=== PATIENT | female | born 1995 | race Caucasian/White ===

== ENCOUNTER 2024-01-06 09:54 | Outpatient (CLI) | payer BC, MEDICAID, SELFPAY | END 2024-01-06 09:55 | disposition home or self-care (01) | LOC: NFLDREF 01-08 10:23 | PROVIDERS: PCP Nurse Practitioner Family; Referring Provider Nurse Practitioner Family; Visit Provider Advanced Practice Midwife | DX: O20.9 Hemorrhage in early pregnancy, unspecified (principal) | CPT/HCPCS: 84702; 86850; 86900; 86901 ==

== ENCOUNTER 2024-01-08 09:53 | Outpatient (CLI) | payer BC, MEDICAID, SELFPAY ==
--- NOTE | 2024-01-08 10:15 | US_ITS ---
Patient: NANCY ALANIZ Facility:?[facility] RIS Patient ID:?[id number] Site Patient ID:?[id number]. Site :?[id number] Study:?US-OB Pelvis TRANSVAGINAL-01/08/2024 10:51:53 AM Ordering Physician:?HILLARY BAUER Final Report: INDICATION: Vaginal bleeding in the setting of . According to the dental technologist`s worksheet, serum beta HCG levels are 659 on 01/06/2024 and 594 on 01/07/2024. COMPARISON: None available. TECHNIQUE: Pelvic grayscale and spectral Doppler ultrasound via a transvaginal approach. FINDINGS: LMP: 11/16/2023 Uterus: Measures 6.5 x 5.5 x 9.8cm. Solid mixed echotexture of focus in the right posterior uterine body abutting and displacing the endometrial stripe consistent with a myometrial fibroid with a subendometrial component measuring 1.1 cm in greatest dimension. There is a similar finding elsewhere in the right uterine body measuring 1.3 cm also consistent with a fibroid. This may abut the lower uterine segment on the transverse static image taken of this finding. Unremarkable cervix. Please note that US is insensitive for detection of epithelial lesions of the cervix, compared to physical examination. Endometrial stripe: Measures 17mm. Uniform in thickness. Right Ovary: Not identifiable. No right adnexal lesion is demonstrated. Left Ovary: Measures 2.1 x 1.8 x 3.9cm and 8mL. 2.0 cm corpus luteum cyst. Spectral Doppler demonstrates normalarterial and venousblood flow. Pelvic fluid: No significant pelvic ascites. Small volume free fluid within physiologic limits of normal. IMPRESSION: of unknown location. No intrauterine or adnexal findings to indicate an ectopic . Follow-up serum beta HCG with or without pelvic ultrasound, as clinically appropriate, is recommended. Consider OB consultation. Incidental findings described above. Dictated by Kenroy Edwards MD @ 01/08/2024 10:58:49 AM Signed by:?Kenroy Edwards MD @01/08/2024 10:58:49 AM (Electronic Signature)
== END 2024-01-08 09:54 | disposition home or self-care (01) ==
LOC: US 09:54
PROVIDERS: PCP Nurse Practitioner Family; Visit Provider Obstetrics & Gynecology
DX: O20.9 Hemorrhage in early pregnancy, unspecified (principal)
CPT/HCPCS: 76817; 84702

== ENCOUNTER 2024-01-14 13:46 | Outpatient (CLI) | payer BC, MEDICAID, SELFPAY | END 2024-01-14 13:47 | disposition home or self-care (01) | LOC: NFLDREF 01-15 07:37 | PROVIDERS: PCP Nurse Practitioner Family; Referring Provider Nurse Practitioner Family; Visit Provider Obstetrics & Gynecology | DX: O03.9 Complete or unspecified spontaneous abortion without complication (principal) | CPT/HCPCS: 84702 ==

== ENCOUNTER 2024-01-19 14:17 | Outpatient (CLI) | payer BC, MEDICAID, SELFPAY ==
--- OUTSIDE RECORDS SUMMARY | 2024-01-20 07:10 | XMS_ITS | Clinical Summary ---
Author Name Unknown Organization [facility] Address [address] [place] [address] Care Team Providers Care Filter Tank Tender Name Role Phone Elsewhere, Pcp Primary Care Provider Unavailabl e Source Comments Patient records contain information from all sites at [facility]. For routine questions regarding patient records, call [phone] during business hours, M-F 8:00 AM - 5:00 PM Central Time. Record requests for emergency care only can be directed to [phone] at any time.[facility] Allergies No known active allergies Medications Medication Sig Dispensed Refills Start Date End Date Status buPROPion XL (WELLBUTRIN XL) 150 mg 24 hr tablet Not taking 0 10/24/2022 Active vilazodone (VIIBRYD) 40 mg tablet 0 10/24/2022 Active naltrexone (DEPADE) 50 mg tablet 0 10/24/2022 Active traZODone (DESYREL) 50 mg tablet Take 50-100 mg by mouth at bedtime as needed. 0 07/31/2022 Active LORazepam (ATIVAN) 0.5 mg tablet 0 Active ibuprofen (ADVIL,MOTRIN) 600 mg tablet Not taking 0 01/12/2022 Active Slynd 4 mg (28) tablet Take 1 tablet by mouth daily. Not currently taking 0 09/22/2022 Active propranoloL (INDERAL) 10 mg tablet Take 10 mg by mouth every 8 (eight) hours as needed. 0 Active penicillin V potassium (VEETIDS) 500 mg tabletIndications:Ph aryngitis Streptococcal Take 1 tablet (500 mg total) by mouth 3 (three) times a day for 10 days. 30 tablet 0 12/11/2023 12/21/2023 cephalexin (KEFLEX) 500 mg capsule Take 500 mg by mouth. 0 12/31/2023 01/10/2024 Active Problems Problem Noted Date Diagnosed Date Bicornuate Uterus 02/28/2019 Comments Yes Encounters Date Type Department Care Team Description 01/07/2024 6:35 PM CDT - 01/07/2024 9:30 PM CDT Emergency [facility] [address] [place] [address] Morris Villalba M.D. Bleeding Vaginal Less Than 22 Week (HCC) (Primary Dx); Threatened (HCC); Abdominal Pain; Bicornuate Uterus Discharge Disposition: Home or Self Care 12/11/2023 12:00 PM IMPLEMENTATION CONSULTANT Office Visit Urgent Care, [facility], in [place], [place] [address] [place] [address] Jose Howell P.A.-C. Pharyngitis Streptococcal (Primary Dx); Pharyngitis Acute Discharge Disposition: Home or Self Care from Last 3 Months Social History Tobacco Use Types Packs/Day Years Used Date Smoking Tobacco: Never Smokeless Tobacco: Never Tobacco Cessation:Counseling Given: Not Answered Nutrition Answer Date Recorded Nutrition: EVOO Fat Source Unknown 12/14 Nutrition: Servings of Fruits/Vegetables per Day Not on file 12/14/2020 Dental Answer Date Recorded Dental: Regular Dentist Unknown 12/15/19 21 Comments Yes Sex and Gender Information Value Date Recorded Sex Assigned at Not on file Gender Identity Not on file Sexual Orientation Not on file Last Filed Vital Signs Vital Sign Reading Time Taken Comments Blood Pressure 138/84 01/07/2024 9:30 PM CDT Pulse 98 01/07/2024 9:30 PM CDT Temperature 37.4 ??C (99.3 ??F) 01/07/2024 3:54 PM CD T Respiratory Rate 16 01/07/2024 5:47 PM CDT Oxygen Saturation 98% 01/07/2024 9:30 PM CDT Inhaled Oxygen Concentration - - Weight 118 kg (260 lb) 01/07/2024 3:54 PM CDT Height 165.1 cm (5' 5) 01/07/2024 3:54 PM CDT Body Mass Index 43.27 01/07/2024 3:54 PM CDT Plan of Treatment Health Maintenance Due Date Last Done Comments HIV Screening 1995 Hepatitis C Screening 1995 Hepatitis B Vaccines (1 of 3 - 19+ 3-dose series) 2014 COVID-19 Vaccine (1 - 2022-2 4 season) 2023 Influenza Vaccine (#1) 2023 , 08/16/2018 Depression Screening (Annual PHQ-2) 10/12/2023 Cervical Cancer Screening 06/28/2024 06/28/2021 DTaP,Tdap,and Td Vaccines (3 - Td or Tdap) 11/04/2031 11/04/2021, 01/27/2019 RSV vaccine - (32-3 6 weeks) or 60+ years (1 - 1-dose 60+ series) 2055 HPV Vaccines Aged Out No longer eligi ble based on patient's age to complete this topic Pneumococcal vaccine (0-64 years) Aged Out No longer eligible b ased on patient's age to complete this topic Procedures Procedure Name Priority Date/Time Associated Diagnosis Comments TESTING LOCATION Routine 01/07/2024 5:54 PM CDT COMPREHENSIVE METABOLIC PANEL, S/P STAT 01/07/2024 5:54 PM CDT CBC WITH DIFFERENTIAL, B STAT 01/07/2024 5:54 PM CDT HUMAN CHORIONIC GONADOTROPIN (HCG), LUISA, STAT 01/07/2024 5:54 PM CDT TYPE AND SCREEN Routine 01/07/2024 5:54 PM CDT GROUP A STREP PCR, THROAT STAT 12/11/2023 12:44 PM IMPLEMENTATION CONSULTANT Pharyngitis Acute from Last 3 Months Results * Testing Location (01/07/2024 5:54 PM CDT) Testing Location [facility] DEFAULT 01/07/2024 6:01 PM CDT [facility] Blood 01/07/2024 5:54 PM CDT 01/07/2024 6:01 PM CDT Travis Littlejohn D.O. LAB BLOOD BANK TEST ORDERABLES [facility] [address] [place] [address], [facility] [address] [place] [address] * (ABNORMAL) CBC with Differential, Blood (01/07/2024 5:54 PM CDT) Hemoglobin 12.7 11.6 - 15.0 g/dL 01/07/2024 6:05 PM CDT [facility] Hematocrit 39.6 35.5 - 44.9 % 01/07/2024 6:05 PM CDT [facility] Erythrocytes 4.79 3.92 - 5.13 x10(12)/L 01/07/2024 6:05 PM CDT [facility] MCV 82.7 78.2 - 97.9 fL 01/07/2024 6:05 PM CDT [facility] RBC Distrib Width 13.5 12.2 - 16.1 % 01/07/2024 6:05 PM CDT [facility] Platelet Count 332 157 - 371 x10(9)/L 01/07/2024 6:05 PM CDT [facility] Leukocytes 9.9(H) 3.4 - 9.6 x10(9)/L 01/07/2024 6:05 PM CDT [facility] Neutrophils 6.41 1.56 - 6.45 x10(9)/L 01/07/2024 6:05 PM CDT [facility] Lymphocytes 2.77 0.95 - 3.07 x10(9)/L 01/07/2024 6:05 PM CDT [facility] Monocytes 0.56 0.26 - 0.81 x10(9)/L 01/07/2024 6:05 PM CDT [facility] Eosinophils 0.17 0.03 - 0.48 x10(9)/L 01/07/2024 6:05 PM CDT [facility] Basophils <0.04 0.01 - 0.08 x10(9)/L 01/07/2024 6:05 PM CDT [facility] Blood (Blood, Venous) 01/07/2024 5:54 PM CDT 01/07/2024 6:01 PM CDT Travis Littlejohn D.O. LAB BLOOD ADD-ON Performing Organization Address [facility] Co de Phone Number [facility] [address] [place] [id number], [facility] [address] [address] * Type and Screen (with Reflex Antibody ID) (01/07/2024 5:54 PM CDT) ABO Group B 01/07/2024 6:55 PM CDT [facility] Rh Type POS 01/07/2024 6:55 PM CDT [facility] Antibody Screen NEG 6:55 PM CDT [facility] Type & Screen Expiration 01/10/2024 23:59 01/07/2024 6:55 PM CDT [facility] ELXM Eligible Y 01/07/2024 6:55 PM CDT [facility] Blood (Blood, Venous) 01/07/2024 5:54 PM CDT 01/07/2024 6:01 PM CDT Travis Littlejohn D.O. LAB BLOOD BANK TEST ORDERABLES Performing Organization Address [facility] Co de Phone Number [facility] [address] [place] [id number], [facility] [address] [address] * (ABNORMAL) hCG (Human Chorionic Gonadotropin), Quantitative, (01/07/2024 5:54 PM CDT) HCG, Quantitative, , P 594(H) <5 IU/L 01/07/2024 6:19 PM CDT [facility] Blood (Blood, Venous) 01/07/2024 5:54 PM CDT 01/07/2024 6:01 PM CDT Travis Littlejohn D.O. LAB BLOOD ADD-ON [facility] [address] [place] [address], [place] [facility] [address] [place] [address] * Comprehensive Metabolic Panel (01/07/2024 5:54 PM CDT) Potassium, P 3.9 3.6 - 5.2 mmol/L 01/07/2024 6:20 PM CDT [facility] Sodium, P 140 135 - 145 mmol/L 01/07/2024 6:20 PM CDT [facility] Chloride, P 104 98 - 107 mmol/L 01/07/2024 6:20 PM CDT [facility] Bicarbonate, P 26 22 - 29 mmol/L 01/07/2024 6:19 PM CDT [facility] Anion Gap, P 10 7 - 15 01/07/2024 6:20 PM CDT [facility] BUN (Blood Urea Nitrogen), P 12 6 - 21 mg/dL 01/07/2024 6:19 PM CDT [facility] Creatinine 0.71 0.59 - 1.04 mg/dL 01/07/2024 6:19 PM CDT [facility] Estimated GFR (eGFR) >90 >=60 mL/min/BS A 01/07/2024 6:19 PM CDT [facility] Comment: Estimated GFR calculated using the 2020 CKD_EPI creatinine equation. Calcium, Total, P 9.1 8.6 - 10.0 mg/dL 01/07/2024 6:19 PM CDT [facility] Glucose, P 87 70 - 140 mg/dL 01/07/2024 6:19 PM CDT [facility] Protein, Total, P 7.5 6.3 - 7.9 g/dL 01/07/2024 6:19 PM CDT [facility] Albumin, P 4.3 3.5 - 5.0 g/dL 01/07/2024 6:19 PM CDT [facility] Aspartate Aminotransferase (AST), P 18 8 - 43 U/L 01/07/2024 6:19 PM CDT [facility] Alkaline Phosphatase, P 100 35 - 104 U/L 01/07/2024 6:19 PM CDT [facility] Alanine Aminotransferase (ALT), P 19 7 - 45 U/L 01/07/2024 6:19 PM CDT [facility] Bilirubin, Total, P 0.2 0.0 - 1.2 mg/dL 01/07/2024 6:19 PM CDT [facility] Blood (Blood, Venous) 01/07/2024 5:54 PM CDT 01/07/2024 6:01 PM CDT Travis Littlejohn D.O. LAB BLOOD ADD-ON Performing Organization Address City/[facility]/ZIP Co de Phone Number [facility] [address] [place] [address], [facility] [place] [address] [place] [address] * (ABNORMAL) Group A Streptococcus PCR, Throat (12/11/2023 12:44 PM IMPLEMENTATION CONSULTANT) Strep Group A, PCR, POCT Positive(A ) Negative 12/11/2023 12:53 PM IMPLEMENTATION CONSULTANT [facility] Swab (Throat) 12/11/2023 12: 44 PM IMPLEMENTATION CONSULTANT 12/11/2023 12:51 PM IMPLEMENTATION CONSULTANT Jose Howell P.A.-C. LAB MICROBI OLOGY - GENERAL ORDERABLES Performing Organization Address [facility] Co de Phone Number [facility] [address] [place] [address], [facility] [address] [address] from Last 3 Months Care Teams Filter Tank Tender Relationship Specialty Start Date End Date Elsewhere, Pcp PCP - General Internal Medicine 01/07/24
--- OUTSIDE RECORDS SUMMARY | 2024-01-20 07:10 | XMS_ITS | Encounter Summary ---
Author Name Unknown Organization [facility] Address [address] [address] Phone Care Team Providers Care Demolition Worker Name Role Phone Elsewhere, Pcp Primary Care Provider Unavailabl e Encounter Details Date Type Department Care Team (Latest Contact Info) Description 12/31/2023 Travel Social History Tobacco Use Types Packs/Day Years Used Date Smoking Tobacco: Never Passive Smoke Exposure: Never Smokeless Tobacco: Never Sex and Gender Information Value Date Recorded Sex Assigned at Not on file Gender Identity Not on file Sexual Orientation Not on file documented as of this encounter Plan of Treatment Not on file documented as of this encounter Visit Diagnoses Not on filedocumented in this encounter Care Teams Demolition Worker Relationship Specialty Start Date End Date Elsewhere, Pcp PCP - General 12/31/23 documented as of this encounter
--- OUTSIDE RECORDS SUMMARY | 2024-01-20 07:10 | XMS_ITS | Clinical Summary ---
Author Name Unknown Organization [facility] [employer] [employer] [facility] Address [address] [address] Phone Care Team Providers Care Area Director Name Role Phone Elsewhere, Pcp Primary Care Provider Unavailabl e Allergies No known active allergies Medications Medication Sig Dispensed Refills Start Date End Date Status naltrexone (Depade, Revia) 50 MG tablet 10/24/2022 Active propranolol (Inderal) 10 MG tablet Take 10 mg by mouth. Active traZODone (Desyrel) 50 MG tablet Take 50-100 mg by mouth one time a day as needed. 07/31/2022 Active Vilazodone (Viibryd) 40 MG tablet 10/24/2022 Active cephALEXin (Keflex) 500 MG capsuleIndications :Infection Take 1 Capsule by mouth two times a day for 10 days. Indications: Infection 20 Capsule 12/31/2023 01/10/2024 Active Problems No known active problems Encounters Date Type Department Care Team Description 12/31/2023 10:00 AM CDT Office Visit [facility] [address] [place] [address] Lory Luna, RUG INSPECTOR, PHOTOLITHOGRAPHIC STRIPPER Sore throat (Primary Dx); Strep throat 12/31/2023 Travel from Last 3 Months Social History Tobacco Use Types Packs/Day Years Used Date Smoking Tobacco: Never Passive Smoke Exposure: Never Smokeless Tobacco: Never Tobacco Cessation:Counseling Given: Not Answered Sex and Gender Information Value Date Recorded Sex Assigned at Not on file Gender Identity Not on file Sexual Orientation Not on file Obstetrics History Last Filed Vital Signs Vital Sign Reading Time Taken Comments Blood Pressure 128/66 12/31/2023 10:26 AM CDT Pulse 101 12/31/2023 10:26 AM CDT Temperature 36.1 ??C (97 ??F) 12/31/2023 10:26 AM CDT Respiratory Rate 20 12/31/2023 10:26 AM CDT Oxygen Saturation 97% 12/31/2023 10:26 AM CDT Inhaled Oxygen Concentration - - Weight 121 kg (266 lb 11.2 oz) 12/31/2023 10:26 AM CDT Height - - Body Mass Index - - Plan of Treatment Health Maintenance Due Date Last Done Comments Cervical Cancer Screening 1995 Hepatitis B Vaccine (Standin g Order) (1 of 3 - 3-dose series) 1995 Last pap w/ HPV Testing 1995 Last pap w/o HPV Testing 1995 COVID-19 Vaccine (#1) 1995 PERTUSSIS (Standing Order) 2014 TETANUS (Standing Order) 2014 Influenza Vaccine Seasonal (Standing Order) (#1) 2023 HPV Vaccine (Standing Order) Aged Out No longer eligible based on patient's age to complete this topic Pneumococcal/PCV20 Vaccine: Pediatrics (2-5 yrs) and At-Risk Patients (6-64 yrs) (Standing Order) Aged Out No longer eligible b ased on patient's age to complete this topic Procedures Procedure Name Priority Date/Time Associated Diagnosis Comments STREP ANTIGEN SCREEN GRP A Routine 12/31/2023 10:17 AM CDT Sore throat from Last 3 Months Results * (ABNORMAL) STREP ANTIGEN SCREEN GRP A (12/31/2023 10:17 AM CDT) Group A Strep Antigen Positive(A ) Negative 12/31/2023 10:43 AM CDT [facility] Swab STRUCTURE OF THROAT / Unknown Non-blood collection / Unknown 12/31/2023 10:17 AM CDT 12/31/2023 10:39 AM CDT Lory Luna APRN, PHOTOLITHOGRAPHIC STRIPPER EC MICROBIOLO GY - GENERAL ORDERABLES [facility] [address] [place] [address], [facility] [phone] from Last 3 Months Care Teams Area Director Relationship Specialty Start Date End Date Elsewhere, Pcp PCP - General 12/31/23
--- OUTSIDE RECORDS SUMMARY | 2024-01-20 07:10 | XMS_ITS | Encounter Summary ---
Author Name Unknown Organization [employer] [facility] Address [address] [address] Phone Care Team Providers Care Transportation Attendant Name Role Phone Elsewhere, Pcp Primary Care Provider Unavailabl e Reason for Visit * Reason Comments Sore Throat Encounter Details Date Type Department Care Team (Late st Contact Info) Description 12/31/2023 10:00 AM CDT Office Visit [facility] [address] [place] [address] Lory Luna, TANISHA, FLOOR SERVICE WORKER [place] [address] [place] [address] Sore throat (Primary Dx); Strep throat Social History Tobacco Use Types Packs/Day Years Used Date Smoking Tobacco: Never Passive Smoke Exposure: Never Smokeless Tobacco: Never Tobacco Cessation:Counseling Given: Not Answered Sex and Gender Information Value Date Recorded Sex Assigned at Not on file Gender Identity Not on file Sexual Orientation Not on file documented as of this encounter Last Filed Vital Signs Vital Sign Reading [...] - - Body Mass Index - - documented in this encounter Patient Instructions * Patient Instructions* Lory Luna APRN, CNP - 12/31/2023 10:00 AM CDT Your strep test is positive Take all your medication as directed. Your are contagious for 24 hours Replace your tooth brush in 24 hours. documented in this encounter Ordered Prescriptions Prescription Sig Dispensed Refills Start Date End Da te cephALEXin (Keflex) 500 MG capsuleIndications:Infe ction Take 1 Capsule by mouth two times a day for 10 days. Indications: Infection 20 Capsule 12/31/2023 01/10/2024 documented in this encounter Progress Notes * Lory Luna APRN, CNP - 12/31/2023 10:00 AM CDT Subjective Hue is a 28 year old female who presents for Patient presents with sore throat with onset this morning Sore Throat Hue is 2 months . Objective BP 128/66 Pulse 101 Temp 36.1 ??C (97 ??F) (Temporal) Resp 20 Wt 121 kg (266 lb 11.2 oz) SpO2 97% Physical Exam Vitals and nursing note reviewed. Exam conducted with a sharepoint application developer present. Constitutional: Appearance: Normal appearance. HENT: Right Ear: Tympanic membrane, ear canal and external ear normal. Left Ear: Tympanic membrane, ear canal and external ear normal. Nose: Nose normal. Mouth/Throat: Mouth: Mucous membranes are moist. Pharynx: Oropharynx is clear. Posterior oropharyngeal erythema present. Cardiovascular: Rate and Rhythm: Normal rate and regular rhythm. Heart sounds: Normal heart sounds. Pulmonary: Effort: Pulmonary effort is normal. Breath sounds: Normal breath sounds. Musculoskeletal: Cervical back: Normal range of motion. Lymphadenopathy: Cervical: Cervical adenopathy present. Skin: General: Skin is warm. Neurological: Mental Status: She is alert. Procedures Assessment/Plan 1. Sore throat (Primary) - STREP ANTIGEN SCREEN GRP A 2. Strep throat - cephALEXin (Keflex) 500 MG capsule; Take 1 Capsule by mouth two times a day for 10 days. Indications: Infection Your strep test is positive Take all your medication as directed. Your are contagious for 24 hours Replace your tooth brush in 24 hours. documented in this encounter Miscellaneous Notes * Clinical Note - Roxy Ferrari CMA - 12/31/2023 10:00 AM CDT Patient presents with sore throat with onset this morning documented in this encounter Plan of Treatment Not on file documented as of this encounter Procedures Procedure Name Priority Date/Time Associated Diagnosis Comments STREP ANTIGEN SCREEN GRP A Routine 12/31/2023 10:17 AM CDT Sore throat documented in this encounter Results * (ABNORMAL) STREP ANTIGEN SCREEN GRP A (12/31/2023 10:17 AM CDT) [facility] Group A Strep Antigen Positive(A ) Negative 12/31/2023 10:43 AM CDT [facility] Swab STRUCTURE OF THROAT / Unknown Non-blood collection / Unknown 12/31/2023 10:17 AM CDT 12/31/2023 10:39 AM CDT Lory Luna APRN, CNP MICROBIOLO GY - GENERAL ORDERABLES Performing Organization Address City/State/[facility] Co de Phone Number [facility] [address] [place] [address], [facility] [phone] documented in this encounter Visit Diagnoses Diagnosis Sore throat- Primary Acute pharyngitis Strep throat Streptococcal sore throat documented in this encounter Historical Medications * This list may reflect changes made after this encounter. Medication Sig Dispensed Refills Start Date End Date Vilazodone (Viibryd) 40 MG tablet 10/24/2022 traZODone (Desyrel) 50 MG tablet Take 50-100 mg by mouth one time a day as needed. 07/31/2022 propranolol (Inderal) 10 MG tablet Take 10 mg by mouth. naltrexone (Depade, Revia) 50 MG tablet 10/24/2022 added in this encounter Care Teams Transportation Attendant Relationship Specialty Start Date End Date Elsewhere, Pcp PCP - General 12/31/23 documented as of this encounter
--- OUTSIDE RECORDS SUMMARY | 2024-01-20 07:11 | XMS_ITS | Encounter Summary ---
Author Name Unknown Organization [facility] Address [address] [place] [address] Care Team Providers Care Print Shop Stenographer Name Role Phone Elsewhere, Pcp Primary Care Provider Unavailabl e Reason for Visit * Reason Comments Vaginal Bleeding 28 yo presents with report of vaginal bleeding and abd cramping. LMP 11/16/23. Encounter Details Date Type Department Care Team ([facility] st Contact Info) Description 01/07/2024 6:35 PM CDT - 01/07/2024 9:30 PM CDT Emergency [facility] [address] [place] [phone] Morris Villalba M.D. [address] [place] [phone] Bleeding Vaginal Less Than 22 Week (HCC) (Primary Dx); Threatened (HCC); Abdominal Pain; Bicornuate Uterus Discharge Disposition: Home or Self Care Social History Tobacco Use Types Packs/Day Years [...] Mass Index 43.27 01/07/2024 3:54 PM CDT documented in this encounter Discharge Instructions * Discharge Instructions* Morris Villalba M.D. - 01/07/2024 9:02 PM CDT Be sure to go to [facility] if you are feeling worsening pain, increased bleeding, feelinglightheaded. If you have any more concerning symptoms, then come here or the nearest emergency department. * Attachments The following attachments cannot be sent through Care Everywhere. * Threatened Miscarriage (Paraguayan) documented in this encounter Medications at Time of Discharge Medication Sig Dispensed Refills Start Date End Date buPROPion XL (WELLBUTRIN XL) 150 mg 24 hr tablet Not taking 0 10/24/2022 ibuprofen (ADVIL,MOTRIN) 600 mg tablet Not taking 0 01/12/2022 LORazepam (ATIVAN) 0.5 mg tablet 0 naltrexone (DEPADE) 50 mg tablet 0 10/24/2022 propranoloL (INDERAL) 10 mg tablet Take 10 mg by mouth every 8 (eight) hours as needed. 0 Slynd 4 mg (28) tablet Take 1 tablet by mouth daily. Not currently taking 0 09/22/2022 traZODone (DESYREL) 50 mg tablet Take 50-100 mg by mouth at bedtime as needed. 0 07/31/2022 vilazodone (VIIBRYD) 40 mg tablet 0 10/24/2022 cephalexin (KEFLEX) 500 mg capsule Take 500 mg by mouth. 0 12/31/20232023 documented as of this encounter ED Notes * Morris Villalba M.D. - 01/07/2024 9:30 PM CDT CHIEF COMPLAINT/REASON FOR VISIT (RN note) Vaginal Bleeding (28 yo presents with report of vaginal bleeding and abd cramping. LMP 11/16/23.) HISTORY OF PRESENT ILLNESS Hue Louis is a 28 y.o. female who presents to the ED for evaluation of vaginal bleedingfor the past four days. She states that it has been light and not much different than her previous 2 full-term pregnancies. Her 1st was an elective termination, she had a baby with her 2nd , then a miscarriage, then a baby with her 4th . This is her 5th and shewas reportedly seen yesterday in [place]. She called today because there were clots and more cramping in her lower abdomen that felt like contractions. They instructed her to come here to the [facility]. Past medical history: Reviewed in the EMR. Agree with nursing documentation. Pertinent past medicalhistory noted per HPI. Patient Active Problem List Diagnosis Bicornuate Uterus Family history: History reviewed. No pertinent family history. Social history: Reviewed in the EMR. Agree with nursing documentation. Pertinent social history noted per HPI. Social History Tobacco Use Smoking status: Never Smokeless tobacco: Never REVIEW OF SYSTEMS Constitutional: As noted in the HPI, otherwise negative. Eyes: As noted in the HPI, otherwise negative. HEENT: As noted in the HPI, otherwise negative. CV: As noted in the HPI, otherwise negative. Resp: As noted in the HPI, otherwise negative. GI: As noted in the HPI, otherwise negative. : As noted in the HPI, otherwise negative. MSK: As noted in the HPI, otherwise negative. Skin: As noted in the HPI, otherwise negative. Neuro: As noted in the HPI, otherwise negative. PHYSICAL EXAMINATION Initial Vitals Temperature 01/07/24 1554 37.4 ??C Pulse Rate 01/07/24 1845 95 Heart Rate 01/07/24 1554 (!) 113 Resp Rate 01/07/24 1554 18 Blood Pressure 01/07/24 1554 132/80 SpO2 01/07/24 1554 98 % Pain Score 01/07/24 1554 4 General: Awake, alert, oriented x3. No apparent distress. Head: Normocephalic, atraumatic. Eyes: Normal sclerae and conjunctivae, extraocular movements intact. ENT: Oropharynx is clear, moist mucus membranes. Neck: Supple, full range of motion, trachea midline. Heart: Regular rate and rhythm. No murmurs, gallops, or rubs. Lungs: Clear to auscultation bilaterally. No wheezing, rales, or rhonchi. Abd: Soft, obese (BMI 43.27), intermittent minimal lower abdominal tenderness without rebound or guarding, nondistended. Back: Normal to inspection, nontender, no costovertebral angle tenderness. Ext: Warm, well-perfused. Skin: Warm, dry, normal color. No rashes. Neuro: Awake, alert, GCS 15, cranial nerves II-XII grossly intact, normal strength/sensation x4 without focal deficits. Psych: Normal affect, concentration, and judgment. MEDICAL DECISION MAKING / ED COURSE: 20-year-old female comes to the emergency department complaining of vaginal bleeding. She was supposed to be seven weeks two days . Her beta hCG is lower than she reports it being over 600 yesterday in the clinic in [place]. I discussed this case in consultation with the OB on-call for [place] who would like to obtain an ultrasound tomorrow morning in [place] and will arrange that for the patient. At this time, she was stable, comfortable, hemoglobin is 12.7. My suspicion for ectopic or tubal is low, although ultrasound will assist with further the finding the source of her bleeding and whether she might need medication treatment, D&C, or watchful waiting. -- Nursing documentation and prior records reviewed in the medical record. -- External documents reviewed. -- I personally reviewed by visualization, interpreted, and discussed with the patient the results of labs as reported in the medical record. FINAL DIAGNOSIS: 1. Bleeding Vaginal Less Than 22 Week (HCC) 2. Threatened (HCC) 3. Abdominal Pain 4. Bicornuate Uterus ED Disposition Discharge DIAGNOSTIC RESULTS Labs Reviewed HUMAN CHORIONIC GONADOTROPIN (HCG), LUISA, - Abnormal Result Value HCG, Quantitative, , P 594 (*) CBC WITH DIFFERENTIAL, B - Abnormal Hemoglobin 12.7 Hematocrit 39.6 Erythrocytes 4.79 MCV 82.7 RBC Distrib Width 13.5 Platelet Count 332 Leukocytes 9.9 (*) Neutrophils 6.41 Lymphocytes 2.77 Monocytes 0.56 Eosinophils 0.17 Basophils <0.04 TYPE AND SCREEN ABO Group B Rh Type POS Antibody Screen NEG Type & Screen Expiration 01/10/2024 23:59 ELXM Eligible Y COMPREHENSIVE METABOLIC PANEL, S/P Potassium, P 3.9 Sodium, P 140 Chloride, P 104 Bicarbonate, P 26 Anion Gap, P 10 BUN (Blood Urea Nitrogen), P 12 Creatinine 0.71 Estimated GFR (eGFR) >90 Calcium, Total, P 9.1 Glucose, P 87 Protein, Total, P 7.5 Albumin, P 4.3 Aspartate Aminotransferase (AST), P 18 Alkaline Phosphatase, P 100 Alanine Aminotransferase (ALT), P 19 Bilirubin, Total, P 0.2 TESTING LOCATION Testing Location [facility] Notes are completed with voice recognition dictation software. Errors are generally corrected in real-time. Please message me via [employer] In Basket if you note any areas requiring clarification. Morris Villalba M.D. 01/09/24 1100 documented in this encounter Plan of Treatment Not on file documented as of this encounter Procedures Procedure Name Priority Date/Time Associated Diagnosis Comments TESTING LOCATION Routine 01/07/2024 5:54 PM CDT CBC WITH DIFFERENTIAL, B STAT 01/07/2024 5:54 PM CDT TYPE AND SCREEN Routine 01/07/2024 5:54 PM CDT HUMAN CHORIONIC GONADOTROPIN (HCG), LUISA, STAT 01/07/2024 5:54 PM CDT COMPREHENSIVE METABOLIC PANEL, S/P STAT 01/07/2024 5:54 PM CDT documented in this encounter Results * Testing Location (01/07/2024 5:54 PM CDT) Testing Location [facility] DEFAULT 01/07/2024 6:01 PM CDT NPRG Blood 01/07/2024 5:54 PM CDT 01/07/2024 6:01 PM CDT Travis Littlejohn D.O. LAB BLOOD BANK TEST ORDERABLES [facility] [address] [place] [address], [facility] NPRG [facility] [address] [place] [address] * Comprehensive Metabolic Panel (01/07/2024 5:54 PM [...] CDT Travis Littlejohn D.O. LAB BLOOD ADD-ON [facility] [address] [place] [address], [facility] NPRG [facility] [address] [place] [address] * (ABNORMAL) CBC with Differential, Blood (01/07/2024 [...] CDT Travis Littlejohn D.O. LAB BLOOD ADD-ON [facility] [address] [place] [address], [facility] NPRG [address] [address] * (ABNORMAL) hCG (Human Chorionic Gonadotropin), Quantitative, (01/07/2024 5:54 PM CDT) HCG, Quantitative, , P 594(H) <5 IU/L 01/07/2024 6:19 PM CDT NPRG Blood (Blood, Venous) 01/07/2024 5:54 PM CDT 01/07/2024 6:01 PM CDT Travis Littlejohn D.O. LAB BLOOD ADD-ON [facility] [address] [place] [address], [facility] NPRG [address] [address] * Type and Screen (with Reflex Antibody [...] Littlejohn D.O. LAB BLOOD BANK TEST ORDERABLES [facility] [address] [place] [address], [facility] NPRG [facility] [address] [place] [address] documented in this encounter Visit Diagnoses Diagnosis Bleeding Vaginal Less Than 22 Week (HCC)- Primary Threatened (HCC) Abdominal Pain Bicornuate Uterus documented in this encounter Care Teams Print Shop Stenographer Relationship Specialty Start Date End Date Elsewhere, Pcp PCP - General Internal Medicine 01/07/24 documented as of this encounter
--- OUTSIDE RECORDS SUMMARY | 2024-01-20 07:11 | XMS_ITS ---
Author Name Unknown Organization [facility] Address [address] [place] [address] Care Team Providers Care Paramedic Rn Name Role Phone Unavailable Unavailable Unavailable Surgery Details Not on file Complications Check Surgery Details section. Procedure Estimated Blood Loss Check Surgery Details section. Procedure Findings Check Surgery Details section. Procedure Specimens Taken Check Surgery Details section.
--- OUTSIDE RECORDS SUMMARY | 2024-01-20 07:11 | XMS_ITS | Encounter Summary ---
Author Name Unknown Organization [facility] Address [address] [place] [address] Care Team Providers Care Igniter Capper Name Role Phone Unavailable Primary Care Provider Unavailabl e Reason for Visit * Reason Comments Sore Throat Headache X4 days Encounter Details Date Type Department Care Team (Latest Contact Info) Description 12/11/2023 12:00 PM TAXICAB COORDINATOR Office Visit Urgent Care, [facility], in [place], [place] [address] [place] [address] Jose Howell P.AGarrett-Nhi [address], [place] [address] Pharyngitis Streptococcal (Primary Dx); Pharyngitis Acute Discharge Disposition: Home or Self Care Social History Tobacco Use Types Packs/Day Years Used Date Smoking Tobacco: Never Smokeless Tobacco: Never Tobacco Cessation:Counseling Given: Not Answered Nutrition Answer Date Recorded Nutrition: EVOO Fat Source Unknown 12/14 Nutrition: Servings of Fruits/Vegetables per Day Not on file 12/14/2020 Dental Answer Date Recorded Dental: Regular Dentist Unknown 12/15/19 21 Sex and Gender Information Value Date Recorded Sex Assigned at Not on file Gender Identity Not on file Sexual Orientation Not on file documented as of this encounter Last Filed Vital Signs Vital Sign Reading Time Taken Comments Blood Pressure 138/85 12/11/2023 12:19 PM TAXICAB COORDINATOR Pulse 114 12/11/2023 12:19 PM TAXICAB COORDINATOR Temperature 37.4 ??C (99.3 ??F) 12/11/2023 12:[address] Respiratory Rate - - Oxygen Saturation 98% 12/11/2023 12:19 PM TAXICAB COORDINATOR Inhaled Oxygen Concentration - - Weight 118 kg (260 lb) 12/11/2023 12:19 PM TAXICAB COORDINATOR Height - - Body Mass Index 43.27 06/28/2020 12:57 PM CDT documented in this encounter Progress Notes * Jose Howell P.A.-C. - 12/11/2023 12:00 PM CST SUBJECTIVE SUBJECTIVE: Hue Louis is an 28 y.o. female who presents for evaluation and treatment of sore throat. Symptoms also include coryza and swollen glands. Onset 4 days, stable since that time. Known exposure: viral URI in family son last week. I have reviewed the current medication list. No Known Allergies OBJECTIVE OBJECTIVE: BP 138/85 (BP Location: Right arm, Patient Position: Sitting) Pulse (!) 114 Temp 37.4 ??C (Temporal) Wt 118 kg LMP 11/16/2023 (Approximate) SpO2 98% BMI 43.27 kg/m?? General appearance:alert, no distress, cooperative Ears: R TM - normal landmarks and mobility without significant erythema or bulging, L TM - normal landmarks and mobility without significant erythema or bulging Nose: clear rhinorrhea and mucosal edema and congestion Oropharynx: tonsils 1+, red, inflamed bilaterally, pharynx red, inflamed Uvula midline Neck: moderate anterior cervical adenopathy bilaterally; trismus absent Lungs: Lungs clear bilaterally Heart: regular rate and rhythm Recent Results (from the past 24 hour(s)) Group A Streptococcus PCR, Throat Collection Time: 12/11/23 12:44 PM Specimen: Throat; Swab Result Value Strep Group A, PCR, POCT Positive (A) ASSESSMENT and PLAN: Diagnosis Plan 1. Pharyngitis Streptococcal 2. Pharyngitis Acute Group A Streptococcus PCR, Throat 1) Symptomatic treatment with fluids, vaporizer, acetaminophen. 2) Recheck as needed for persistence, worsening, appearance of new symptoms. Typical improvement should be expected in 2-3 days with antibiotics. 3) Discussed sore throat etiologies. Side effects of the recommended medications discussed. Questions answered. Jose Howell P.A.-C. CAB COORDINATOR documented in this encounter Plan of Treatment Not on file documented as of this encounter Procedures Procedure Name Priority Date/Time Associated Diagnosis Comments GROUP A STREP PCR, THROAT STAT 12/11/2023 12:44 PM TAXICAB COORDINATOR Pharyngitis Acute documented in this encounter Results * (ABNORMAL) Group A Streptococcus PCR, Throat (12/11/2023 12:44 PM TAXICAB COORDINATOR) Strep Group A, PCR, POCT Positive(A ) Negative 12/11/2023 12:53 PM TAXICAB COORDINATOR NPRG Swab (Throat) 12/11/2023 12: 44 PM TAXICAB COORDINATOR 12/11/2023 12:51 PM TAXICAB COORDINATOR Jose Howell P.A.-C. LAB MICROBI OLOGY - GENERAL ORDERABLES [facility] [address] [place] [address], [facility] NPRG [facility] [address] [place] [address] documented in this encounter Visit Diagnoses Diagnosis Pharyngitis Streptococcal- Primary Pharyngitis Acute documented in this encounter
--- OUTSIDE RECORDS SUMMARY | 2024-01-20 07:11 | XMS_ITS | Referral Summary ---
Author Name Unknown Organization [facility] Address [address] [place] [address] Care Team Providers Care Critical Care Unit Nurse Name Role Phone Elsewhere, Pcp Primary Care Provider Unavailabl e Source Comments Patient records contain information from all sites at [facility]. For routine questions regarding patient records, call [phone] during business hours, M-F 8:00 AM - 5:00 PM Central Time. Record requests for emergency care only can be directed to [phone] at any time.[facility] Encounters Date Type Department Care Team Description 01/07/2024 6:35 PM CDT - 01/07/2024 9:30 PM CDT Emergency [facility] [address] [place] [phone] Morris Villalba M.D. Bleeding Vaginal Less Than 22 Week (HCC) (Primary Dx); Threatened (HCC); Abdominal Pain; Bicornuate Uterus Discharge Disposition: Home or Self Care 12/11/2023 12:00 PM BAR HELPER Office Visit Urgent Care, [facility], in [place], [place] [address] [place] [phone] Jose Howell P.A.-C. Pharyngitis Streptococcal (Primary Dx); Pharyngitis Acute Discharge Disposition: Home or Self Care from Last 3 Months Allergies No known active allergies Medications Medication [...] Diagnosed Date Bicornuate Uterus 02/28/2019 Comments Yes Social History Tobacco Use Types Packs/Day Years Used Date Smoking Tobacco: Never Smokeless Tobacco: Never Tobacco Cessation:Counseling Given: Not Answered Nutrition Answer Date Recorded Nutrition: EVOO Fat Source Unknown 12/14 Nutrition: Servings of Fruits/Vegetables per Day Not on file 12/14/2020 Dental Answer Date Recorded Dental: Regular Dentist Unknown 12/15/19 Comments Yes Sex and Gender Information Value [...] 01/07/2024 3:54 PM CDT Plan of Treatment Not on file Procedures Procedure Name Priority Date/Time Associated Diagnosis Comments TESTING LOCATION Routine 01/07/2024 5:54 PM CDT COMPREHENSIVE METABOLIC PANEL, S/P STAT 01/07/2024 5:54 PM CDT CBC WITH DIFFERENTIAL, B STAT 01/07/2024 5:54 PM CDT HUMAN CHORIONIC GONADOTROPIN (HCG), LUISA, STAT 01/07/2024 5:54 PM CDT TYPE AND SCREEN Routine 01/07/2024 5:54 PM CDT GROUP A STREP PCR, THROAT STAT 12/11/2023 12:44 PM BAR HELPER Pharyngitis Acute from Last 3 Months Results * Testing Location (01/07/2024 5:54 PM CDT) Testing Location [facility] DEFAULT 01/07/2024 6:01 PM CDT NPRG Blood 01/07/2024 5:54 PM CDT 01/07/2024 6:01 PM CDT Travis Littlejohn D.O. LAB BLOOD BANK TEST ORDERABLES [facility] [address] [place] [address], [facility] NPRG [facility] [address] [place] [address] * (ABNORMAL) CBC with Differential, Blood (01/07/2024 [...] CDT Travis Littlejohn D.O. LAB BLOOD ADD-ON [facility] [address] [place] [address], [facility] NPRG [facility] [address] [place] [address] * Type and Screen (with Reflex Antibody [...] BLOOD BANK TEST ORDERABLES Performing Organization Address City/[facility]/ZIP Co de Phone Number [facility] [address] [place] [address], [facility] NPRG [place] [address] [place] [address] * (ABNORMAL) hCG (Human Chorionic Gonadotropin), Quantitative, (01/07/2024 5:54 PM CDT) HCG, Quantitative, , P 594(H) <5 IU/L 01/07/2024 6:19 PM CDT NPRG Blood (Blood, Venous) 01/07/2024 5:54 PM CDT 01/07/2024 6:01 PM CDT Travis Littljeohn D.O. LAB BLOOD ADD-ON Performing Organization Address City/[facility]/ZIP Co de Phone Number [facility] [address] [place] [address], [facility] NPRG [address] [address] * Comprehensive Metabolic Panel (01/07/2024 5:54 PM [...] CDT Travis Littlejohn D.O. LAB BLOOD ADD-ON [facility] [address] [place] [address], [facility] NPRG [facility] [address] [place] [address] * (ABNORMAL) Group A Streptococcus PCR, Throat (12/11/2023 12:44 PM BAR HELPER) Strep Group A, PCR, POCT Positive(A ) Negative 12/11/2023 12:53 PM BAR HELPER NPRG Swab (Throat) 12/11/2023 12: 44 PM BAR HELPER 12/11/2023 12:51 PM BAR HELPER Jose Howell P.A.-C. LAB MICROBI OLOGY - GENERAL ORDERABLES [facility] [address] [place] [address], [facility] NPRG [facility] [address] [place] [address] from Last 3 Months Care Teams Critical Care Unit Nurse Relationship Specialty Start Date End Date Elsewhere, Pcp PCP - General Internal Medicine 01/07/24
== END 2024-01-19 14:18 | disposition home or self-care (01) ==
LOC: NFLDREF 01-20 07:09
PROVIDERS: PCP Nurse Practitioner Family; Referring Provider Nurse Practitioner Family; Visit Provider Obstetrics & Gynecology
DX: O03.9 Complete or unspecified spontaneous abortion without complication (principal)
CPT/HCPCS: 84702

== ENCOUNTER 2024-04-27 08:16 | Outpatient (CLI) | payer BC, SELFPAY ==
--- OUTSIDE RECORDS SUMMARY | 2024-04-29 04:19 | XMS_ITS | Clinical Summary ---
Author Organization [facility] Address [address] [place] [address] Care Team Providers Care Civil Estimator Name Role Phone Elsewhere, Pcp Primary Care Provider Unavailabl e Source Comments Patient records contain information from all sites at [facility]. For routine questions regarding patient records, call [phone] during business hours, M-F 8:00 AM - 5:00 PM Central Time. Record requests for emergency care only can be directed to [phone] at any time.[facility] Allergies No known active allergies Medications Medication Sig Dispensed Refills Start Date End Date Status buPROPion XL (WELLBUTRIN XL) 150 mg 24 hr tablet Not taking 10/24/2022 Active vilazodone (VIIBRYD) 40 mg tablet 10/24/2022 Active naltrexone (DEPADE) 50 mg tablet 10/24/2022 Active traZODone (DESYREL) 50 mg tablet Take 50-100 mg by mouth at bedtime as needed. 07/31/2022 Active LORazepam (ATIVAN) 0.5 mg tablet Active ibuprofen (ADVIL,MOTRIN) 600 mg tablet Not taking 01/12/2022 Active Slynd 4 mg (28) tablet Take 1 tablet by mouth daily. Not currently taking 09/22/2022 Active propranoloL (INDERAL) 10 mg tablet Take 10 mg by mouth every 8 (eight) hours as needed. Active Active Problems Problem Noted Date Diagnosed Date [...] - 19+ 3-dose series) 2014 COVID-19 Vaccine ( - 2022-2 4 season) 2023 Depression Screening (Annual PHQ-2) 10/12/2023 Cervical Cancer Screening 06/28/2024 06/28/2021 Influenza Vaccine (#1) 2024 , 08/16/2018 DTaP,Tdap,and Td Vaccines (3 - Td or Tdap) 11/04/2031 11/04/2021, 01/27/2019 RSV vaccine - (32-3 6 weeks) or 60+ years (1 - 1-dose 60+ series) 2055 HPV Vaccines Aged Out No longer eligi ble based on patient's age to complete this topic Pneumococcal vaccine (0-64 years) Aged Out No longer eligible b ased on patient's age to complete this topic Care Teams Civil Estimator Relationship Specialty Start Date End Date Elsewhere, Pcp PCP - General Internal Medicine 01/07/24
--- OUTSIDE RECORDS SUMMARY | 2024-04-29 04:19 | XMS_ITS ---
Author Organization [facility] Address [address] [place] [address] Care Team Providers Care Welding Production Supervisor Name Role Phone Unavailable Unavailable Unavailable Surgery Details Not on file Complications Check Surgery Details section. Procedure Estimated Blood Loss Check Surgery Details section. Procedure Findings Check Surgery Details section. Procedure Specimens Taken Check Surgery Details section.
--- OUTSIDE RECORDS SUMMARY | 2024-04-29 04:19 | XMS_ITS | Referral Summary ---
Author Organization [facility] Address [address] [place] [address] Care Team Providers Care Rubber Tubing Backer Name Role Phone Elsewhere, Pcp Primary Care Provider Unavailabl e Source Comments Patient records contain information from all sites at [facility]. For routine questions regarding patient records, call [phone] during business hours, M-F 8:00 AM - 5:00 PM Central Time. Record requests for emergency care only can be directed to [phone] at any time.[facility] Allergies No known active allergies Medications Medication [...] CDT Plan of Treatment Not on file Care Teams Rubber Tubing Backer Relationship Specialty Start Date End Date Elsewhere, Pcp PCP - General Internal Medicine 01/07/24
--- OUTSIDE RECORDS SUMMARY | 2024-04-29 04:19 | XMS_ITS | Clinical Summary ---
Author Organization [facility] Address [address] [address] Phone Care Team Providers Care Mesmerist Name Role Phone Elsewhere, Pcp Primary Care Provider Unavailabl e Allergies No known active allergies Medications Medication Sig Dispensed Refills Start Date End Date Status naltrexone (Depade, Revia) 50 MG tablet 10/24/2022 Activ e propranolol (Inderal) 10 MG tablet Take 10 mg by mouth. Active traZODone (Desyrel) 50 MG tablet Take 50-100 mg by mouth one time a day as needed. 07/31/2022 Active Vilazodone (Viibryd) 40 MG tablet 10/24/2022 Active Active Problems No known active problems Social History Tobacco Use Types Packs/Day Years [...] Last Done Comments Cervical Cancer Screening 1995 Last pap w/ HPV Testing 1995 Last pap w/o HPV Testing 1995 Hepatitis B Vaccine (Standin g Order) (1 of 3 - 19+ 3-dose series) 2014 PERTUSSIS (Standing Order) 2014 TETANUS (Standing Order) 2014 Influenza Vaccine Seasonal (Standing Order) (Season Ended) 2024 HPV Vaccine (Standing Order) Aged Out No longer eligible based on patient's age to complete this topic Pneumococcal/PCV20 Vaccine: Pediatrics (2-5 yrs) and At-Risk Patients (6-64 yrs) (Standing Order) Aged Out No longer eligible b ased on patient's age to complete this topic Care Teams Mesmerist Relationship Specialty Start Date End Date Elsewhere, Pcp PCP - General 12/31/23
== END 2024-04-27 08:17 | disposition home or self-care (01) ==
LOC: NFLDREF 04-29 04:16
PROVIDERS: PCP Nurse Practitioner Family; Referring Provider Nurse Practitioner Family; Visit Provider Obstetrics & Gynecology
DX: O09.299 Supervision of pregnancy with other poor reproductive or obstetric history, unspecified trimester (principal)
CPT/HCPCS: 84702

== ENCOUNTER 2024-04-29 09:08 | Outpatient (CLI) | payer BC, SELFPAY ==
--- OUTSIDE RECORDS SUMMARY | 2024-05-02 14:48 | XMS_ITS | Clinical Summary ---
Author Organization [facility] Address [address] [place] [address] Care Team Providers Care Room Service Manager Name Role Phone Elsewhere, Pcp Primary Care Provider Unavailabl e Source Comments Patient records contain information from all sites at [facility]. For routine questions regarding patient records, call [phone] during business hours, M-F 8:00 AM - 5:00 PM Central Time. Record requests for emergency care only can be directed to [phone] at any time.[facility] Allergies No known active allergies Medications [...] age to complete this topic Care Teams Room Service Manager Relationship Specialty Start Date End Date Elsewhere, Pcp PCP - General Internal Medicine 01/07/24
--- OUTSIDE RECORDS SUMMARY | 2024-05-02 14:48 | XMS_ITS | Clinical Summary ---
Author Organization [facility] Address [address] [address] Phone Care Team Providers Care Furnace Checker Name Role Phone Elsewhere, Pcp Primary Care [...] 2014 Influenza Vaccine Seasonal (Standing Order) (#1) 2024 HPV Vaccine (Standing Order) Aged Out No longer eligible based on patient's age to complete this topic Pneumococcal/PCV20 Vaccine: Pediatrics (2-5 yrs) and At-Risk Patients (6-64 yrs) (Standing Order) Aged Out No longer eligible b ased on patient's age to complete this topic Care Teams Furnace Checker Relationship Specialty Start Date End Date Elsewhere, Pcp PCP - General 12/31/23
--- OUTSIDE RECORDS SUMMARY | 2024-05-02 14:48 | XMS_ITS ---
Author Organization [facility] Address [address] [place] [address] Care Team Providers Care General Practice Name Role Phone Unavailable Unavailable Unavailable Surgery Details Not on file Complications Check Surgery Details section. Procedure Estimated Blood Loss Check Surgery Details section. Procedure Findings Check Surgery Details section. Procedure Specimens Taken Check Surgery Details section.
--- OUTSIDE RECORDS SUMMARY | 2024-05-02 14:48 | XMS_ITS | Referral Summary ---
Author Organization [facility] Address [address] [place] [address] Care Team Providers Care Mobile Application Development Lead Name Role Phone Elsewhere, Pcp Primary Care Provider Unavailabl e Source Comments Patient records contain information from all sites at [facility]. For routine questions regarding patient records, call [phone] during business hours, M-F 8:00 AM - 5:00 PM Central Time. Record requests for emergency care only can be directed to [phone] at any time.[facility] Allergies No known active allergies Medications Medication [...] of Treatment Not on file Care Teams Mobile Application Development Lead Relationship Specialty Start Date End Date Elsewhere, Pcp PCP - General Internal Medicine 01/07/24
== END 2024-04-29 09:09 | disposition home or self-care (01) ==
LOC: NFLDREF 05-02 14:45
PROVIDERS: PCP Nurse Practitioner Family; Referring Provider Nurse Practitioner Family; Visit Provider Obstetrics & Gynecology
DX: O09.291 Supervision of pregnancy with other poor reproductive or obstetric history, first trimester (principal); Z3A.08 8 weeks gestation of pregnancy
CPT/HCPCS: 84702

== ENCOUNTER 2024-05-02 08:23 | Outpatient (CLI) | payer BC, SELFPAY ==
--- OUTSIDE RECORDS SUMMARY | 2024-05-04 00:17 | XMS_ITS ---
Author Organization [facility] Address [address] [place] [address] Care Team Providers Care Voltage Tester Name Role Phone Unavailable Unavailable Unavailable Surgery Details Not on file Complications Check Surgery Details section. Procedure Estimated Blood Loss Check Surgery Details section. Procedure Findings Check Surgery Details section. Procedure Specimens Taken Check Surgery Details section.
--- OUTSIDE RECORDS SUMMARY | 2024-05-04 00:17 | XMS_ITS | Clinical Summary ---
Author Organization [facility] Address [address] [place] [address] Care Team Providers Care Financial Assistance Specialist Name Role Phone Elsewhere, Pcp Primary Care Provider Unavailabl e Source Comments Patient records contain information from all sites at [facility]. For routine questions regarding patient records, call [phone] during business hours, M-F 8:00 AM - 5:00 PM Central Time. Record requests for emergency care only can be directed to [phone] at any time.[facility] Allergies No known active allergies Medications Medication [...] age to complete this topic Care Teams Financial Assistance Specialist Relationship Specialty Start Date End Date Elsewhere, Pcp PCP - General Internal Medicine 01/07/24
--- OUTSIDE RECORDS SUMMARY | 2024-05-04 00:17 | XMS_ITS | Referral Summary ---
Author Organization [facility] Address [address] [place] [address] Care Team Providers Care Director Workers Compensation Name Role Phone Elsewhere, Pcp Primary Care Provider Unavailabl e Source Comments Patient records contain information from all sites at [facility]. For routine questions regarding patient records, call [phone] during business hours, M-F 8:00 AM - 5:00 PM Central Time. Record requests for emergency care only can be directed to [phone] at any time.[facility] Allergies No known active allergies [...] of Treatment Not on file Care Teams Director Workers Compensation Relationship Specialty Start Date End Date Elsewhere, Pcp PCP - General Internal Medicine 01/07/24
--- OUTSIDE RECORDS SUMMARY | 2024-05-04 00:17 | XMS_ITS | Clinical Summary ---
Author Organization [facility] Address [address] [address] Phone Care Team Providers Care Plant Operations Coordinator Name Role Phone Elsewhere, Pcp Primary Care [...] age to complete this topic Care Teams Plant Operations Coordinator Relationship Specialty Start Date End Date Elsewhere, Pcp PCP - General 12/31/23
== END 2024-05-02 08:24 | disposition home or self-care (01) ==
LOC: NFLDREF 05-04 00:16
PROVIDERS: PCP Nurse Practitioner Family; Referring Provider Nurse Practitioner Family; Visit Provider Obstetrics & Gynecology
DX: O09.299 Supervision of pregnancy with other poor reproductive or obstetric history, unspecified trimester (principal)
CPT/HCPCS: 84702

== ENCOUNTER 2024-05-20 14:21 | Outpatient (CLI) | payer BC, SELFPAY ==
--- OUTSIDE RECORDS SUMMARY | 2024-05-20 14:24 | XMS_ITS | Referral Summary ---
Author Organization [facility] Address [address] [place] [address] Care Team Providers Care Supervisor Reclamation Name Role Phone Elsewhere, Pcp Primary Care Provider Unavailabl e Source Comments Patient records contain information from all sites at [facility]. For routine questions regarding patient records, call [phone] during business hours, M-F 8:00 AM - 5:00 PM Central Time. Record requests for emergency care only can be directed to [phone] at any time.[facility] Allergies [...] of Treatment Not on file Care Teams Supervisor Reclamation Relationship Specialty Start Date End Date Elsewhere, Pcp PCP - General Internal Medicine 01/07/24
--- OUTSIDE RECORDS SUMMARY | 2024-05-20 14:24 | XMS_ITS | Clinical Summary ---
Author Organization [facility] Address [address] [place] [address] Care Team Providers Care Driver Wheelchair Name Role Phone Elsewhere, Pcp Primary Care Provider Unavailabl e Source Comments Patient records contain information from all sites at [facility]. For routine questions regarding patient records, call [phone] during business hours, M-F 8:00 AM - 5:00 PM Central Time. Record requests for emergency care only can be directed to [phone] at any time.[facility] Allergies No known active allergies Medications [...] age to complete this topic Care Teams Driver Wheelchair Relationship Specialty Start Date End Date Elsewhere, Pcp PCP - General Internal Medicine 01/07/24
--- OUTSIDE RECORDS SUMMARY | 2024-05-20 14:24 | XMS_ITS ---
Author Organization [facility] Address [address] [place] [address] Care Team Providers Care Building Dismantler Name Role Phone Unavailable Unavailable Unavailable Surgery Details Not on file Complications Check Surgery Details section. Procedure Estimated Blood Loss Check Surgery Details section. Procedure Findings Check Surgery Details section. Procedure Specimens Taken Check Surgery Details section.
--- OUTSIDE RECORDS SUMMARY | 2024-05-20 14:24 | XMS_ITS | Clinical Summary ---
Author Organization [facility] [employer] [facility] Address [address] [address] Phone Care Team Providers Care Fence Making Machine Operator Name Role Phone Elsewhere, Pcp Primary Care [...] age to complete this topic Care Teams Fence Making Machine Operator Relationship Specialty Start Date End Date Elsewhere, Pcp PCP - General 12/31/23
== END 2024-05-20 14:22 | disposition home or self-care (01) ==
PROVIDERS: PCP Nurse Practitioner Family; Visit Provider Registered Nurse
DX: Z34.91 Encounter for supervision of normal pregnancy, unspecified, first trimester (principal); Z3A.08 8 weeks gestation of pregnancy
CPT/HCPCS: 76817; 82565; 82570; 84156; 84450; 84460; 84520; 86592; 86703; 86704; 86706; 86762; 86787; 86803; 86850; 86900; 86901; 87086; 87340

== ENCOUNTER 2024-08-17 09:41 | Outpatient (CLI) | payer BC, MEDICAID, SELFPAY ==
--- OUTSIDE RECORDS SUMMARY | 2024-08-17 09:44 | XMS_ITS | Clinical Summary ---
Author Organization [facility] Address [address] [place] [address] Care Team Providers Care Fretted Instrument Inspector Name Role Phone Elsewhere, Pcp Primary Care Provider Unavailabl e Source Comments Patient records contain information from all sites at [facility]. For routine questions regarding patient records, call [phone] during business hours, M-F 8:00 AM - 5:00 PM Central Time. Record requests for emergency care only can be directed to [phone] at any time.[facility] Allergies No known active allergies Medications buPROPion XL (WELLBUTRIN XL) 150 mg 24 hr tablet Not taking 3 Active vilazodone (VIIBRYD) 40 mg tablet 3 Active naltrexone (DEPADE) 50 mg tablet 3 Active traZODone (DESYREL) 50 mg tablet Take 50-100 mg by mouth at bedtime as needed. 2 Active LORazepam (ATIVAN) 0.5 mg tablet Active ibuprofen (ADVIL,MOTRIN) 600 mg tablet Not taking 2 Active Slynd 4 mg (28) tablet Take 1 tablet by mouth daily. Not currently taking 2 Active propranoloL (INDERAL) 10 mg tablet Take [...] Recorded Sex Assigned at Not on file Legal Sex Female 5:50 PM [employer]STER [employer] Gender Identity Not on file Sexual Orientation [...] of 3 - 19+ 3-dose series) 2014 Depression Screening (Annual PHQ-2) 10/12/2023 COVID-19 Vaccine ( - 2023-2 5 season) 2024 Cervical/Vaginal Cancer Screening 06/28/2024 06/28/2021 Influenza Vaccine (#1) 2024 , 08/16/2018 DTaP,Tdap,and Td Vaccines (3 - Td or Tdap) 11/04/2031 11/04/2021, 01/27/2019 RSV vaccine - (32-3 6 weeks) or 60+ years (1 - 1-dose 75+ series) 2070 HPV Vaccines Aged Out No longer eligi ble based on patient's age to complete this topic IPV Vaccines Aged Out No longer eligi ble based on patient's age to complete this topic Pneumococcal vaccine (0-64 years) Aged Out No longer eligible b ased on patient's age to complete this topic Insurance [facility] Care Teams Fretted Instrument Inspector Relationship Specialty Start Date End Date Elsewhere, Pcp PCP - General Internal Medicine 01/07/24
--- OUTSIDE RECORDS SUMMARY | 2024-08-17 09:44 | XMS_ITS | Referral Summary ---
Author Organization [facility] Address [address] [place] [address] Care Team Providers Care Reeling Operator Name Role Phone Elsewhere, Pcp Primary Care Provider Unavailabl e Source Comments Patient records contain information from all sites at [facility]. For routine questions regarding patient records, call [phone] during business hours, M-F 8:00 AM - 5:00 PM Central Time. 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
--- OUTSIDE RECORDS SUMMARY | 2024-08-17 09:44 | XMS_ITS | Clinical Summary ---
Author Organization [facility] Address [address] [address] Phone Care Team Providers Care International Trade Manager Name Role Phone Elsewhere, Pcp Primary Care Provider Unavailabl e Allergies No known active allergies Medications naltrexone (Depade, Revia) 50 MG tablet 10/24/2022 [...] Tobacco: Never Tobacco Cessation:Counseling Given: Not Answered Comments Unknown Sex and Gender Information Value Date Recorded Sex Assigned at Not on file Legal Sex Female 9:57 AM CDT Gender Identity Not on file Sexual Orientation [...] (Standing Order) 2014 TETANUS (Standing Order) 2014 COVID-19 Vaccine ( - 2023-2 5 season) 2024 Influenza Vaccine Seasonal (Standing Order) (#1) 2024 HPV Vaccine (Standing Order) Aged Out No longer eligible based on patient's age to complete this topic Pneumococcal/PCV20 Vaccine: Pediatrics (2-5 yrs) and At-Risk Patients (6-64 yrs) (Standing Order) Aged Out No longer eligible b ased on patient's age to complete this topic Insurance [facility] Care Teams International Trade Manager Relationship Specialty Start Date End Date Elsewhere, Pcp PCP - General 12/31/23
--- OUTSIDE RECORDS SUMMARY | 2024-08-17 09:44 | XMS_ITS ---
Author Organization [facility] Address [address] [place] [address] Care Team Providers Care Academic Counselor Name Role Phone Unavailable Unavailable Unavailable Surgery Details Not on file Complications Check Surgery Details section. Procedure Estimated Blood Loss Check Surgery Details section. Procedure Findings Check Surgery Details section. Procedure Specimens Taken Check Surgery Details section.
== END 2024-08-17 09:42 | disposition home or self-care (01) ==
LOC: US 09:42
PROVIDERS: PCP Nurse Practitioner Family; Visit Provider Advanced Practice Midwife
DX: O99.212 Obesity complicating pregnancy, second trimester (principal); E66.01 Morbid (severe) obesity due to excess calories; Z3A.21 21 weeks gestation of pregnancy
CPT/HCPCS: 76811

== ENCOUNTER 2024-10-03 09:55 | Outpatient (CLI) | payer BC, MEDICAID, SELFPAY ==
--- NOTE | 2024-10-03 10:15 | CRLHL7_ITS ---
For Patients: As a result of the Century Cures Act, medical imaging exams and procedure reports are released immediately into your electronic medical record. You may view this report before your referring provider. If you have questions, please contact your health care provider. INDICATION: Third trimester scan, evaluate growth. 2VC, BMI/OBESITY COMPARISON: 08/17/2024 TECHNIQUE: Real time conner scale imaging of the fetus was performed. FINDINGS/IMPRESSION: Sonographic imaging demonstrates a single living intrauterine gestation. Fetus demonstrates a regular cardiac rate of 145 beats per minute. Fetus has a breech position. The placenta lies posteriorly. Amniotic fluid volume appears normal and there is a single deepest vertical pocket: 6.1 cm. The estimated weight is 1316gm which lies at the 75th %. On the prior OB ultrasound exam dated 08/17/2024 the estimated weight was at the 53rd%. BPD 49th percentile. HC 53rd percentile. AC 87th percentile. FL 37th percentile. The HC/AC ratio measures 1.05 range (0.99-1.21). Sonographic gestational age 28 weeks 6 days and a sonographic due date of 12/20/2024. Sonographic age 6 days ahead of the clinical age. Dictated by Filiberto Lee MD @ 10/03/2024 1:08:53 PM (Electronically Signed)
== END 2024-10-03 09:56 | disposition home or self-care (01) ==
LOC: US 09:55
PROVIDERS: PCP Nurse Practitioner Family; Visit Provider Advanced Practice Midwife
DX: O99.213 Obesity complicating pregnancy, third trimester (principal); Z68.41 Body mass index [BMI] 40.0-44.9, adult; Z3A.28 28 weeks gestation of pregnancy
CPT/HCPCS: 76816; 86592

== ENCOUNTER 2024-10-10 08:50 | Outpatient (CLI) | payer BC, MEDICAID, SELFPAY | END 2024-10-10 08:51 | disposition home or self-care (01) | LOC: NFLDREF 10-11 11:40 | PROVIDERS: PCP Nurse Practitioner Family; Referring Provider Nurse Practitioner Family; Visit Provider Advanced Practice Midwife | DX: O99.810 Abnormal glucose complicating pregnancy (principal) | CPT/HCPCS: 82951; 82952 ==

== ENCOUNTER 2024-11-14 10:10 | Outpatient (CLI) | payer BC, MEDICAID, SELFPAY ==
--- NOTE | 2024-11-14 10:15 | CRLHL7_ITS ---
For Patients: As a result of the Century Cures Act, medical imaging exams and procedure reports are released immediately into your electronic medical record. You may view this report before your referring provider. If you have questions, please contact your health care provider. OB ULTRASOUND ROSA by LMP: 12/26/2024. GA: 34 w, 0 d. Single. INDICATION: High-risk. Two-vessel cord and high BMI. TECHNIQUE: Real time conner scale imaging of the fetus was performed. Transabdominal. CERVIX: Visualized. Measurement: 3.6 cm. POSITIONING: Left transverse. AMNIOTIC FLUID: 7.9 cm. SDP (N: greater than 2 x 1 cm) BIOPHYSICAL PROFILE: Total score: 8. Gross body movements: 2. tone: 2. Respiratory activity: 2. Amniotic fluid: 2. (SDP N: greater than 2 x 1 cm) PLACENTA: Technique: Transabdominal. PLACENTA POSITION: Posterior. DOPPLER: heart rate: 154 bpm. BIOMETRY: BPD: 8.7 cm. 35 w, 0 d, 75.6 percent. HC: 32.4 cm. 36 w, 4 d, 79.2 percent. AC: 31.7 cm. 35 w, 4 d, 91.1 percent. FL: 6.1 cm. 31 w, 6 d, 3.6 percent. FL/AC ratio: 19.4 percent. HC/AC ratio: 1.0. EFW: 2487 g. Weight: 5 lbs, 8 oz. age by this US: 34 w, 5 d. ROSA by this US: 12/21/2024. Percentile by ROSA: 64.2 percent. IMPRESSION: 1. Sonographic gestational age 34 weeks 5 days and sonographic due date 12/21/2024. Sonographic age 5 days ahead of the clinical age. 2. Estimated weight 64th percentile. Abdominal circumference 91st percentile. 3. Anterior uterine fibroid measures 1.6 x 1.7 x 1.1 cm. 4. Two-vessel cord. 5. Biophysical profile score 8/8. Filiberto Lee M.D. Diagnostic Radiologist [email or web address] by: Filiberto Lee MD @ 11/14/2024 12:40:00 PM (Electronically Signed)
== END 2024-11-14 10:11 | disposition home or self-care (01) ==
LOC: US 10:11
PROVIDERS: PCP Nurse Practitioner Family; Visit Provider Advanced Practice Midwife
DX: O99.213 Obesity complicating pregnancy, third trimester (principal); O24.410 Gestational diabetes mellitus in pregnancy, diet controlled; O34.13 Maternal care for benign tumor of corpus uteri, third trimester; E66.01 Morbid (severe) obesity due to excess calories; Z68.41 Body mass index [BMI] 40.0-44.9, adult; Z3A.34 34 weeks gestation of pregnancy
CPT/HCPCS: 76816; 76819

== ENCOUNTER 2024-11-21 10:19 | Outpatient (CLI) | payer BC, MEDICAID, SELFPAY ==
--- NOTE | 2024-11-21 10:15 | CRLHL7_ITS ---
For Patients: As a result of the Cures Act, medical imaging exams and procedure reports are released immediately into your electronic medical record. You may view this report before your referring provider. If you have questions, please contact your health care provider. OB ULTRASOUND BIOPHYSICAL PROFILE, 11/21/2024 CLINICAL HISTORY: Two vessel cord and high BMI. COMPARISON: 11/14/2024, 10/03/2024, 08/17/2024. TECHNIQUE: Transabdominal OB ultrasound. Real time conner scale imaging of the fetus was performed. FINDINGS: Gestation: Single. ROSA by LMP: 12/26/2024. GA: 35 weeks 0 days. Cervix: Visualized. Positioning: Transverse, head to maternal left. Amniotic Fluid: 9.1 cm. Bebeto: 24.6 CM. Placenta: Technique: Transabdominal. Placenta Position: Posterior, left wall. Dopplers: Heart Rate: 148 bpm. Biophysical Profile Total Score: 6 Gross Body Movements: 2 Tone: 2 Respiratory Activity: 0 Amniotic Fluid: 2 IMPRESSION: 1. Biophysical profile score 6/8. No respiratory activity. 2. Amniotic fluid single deepest pocket 9.1 cm. Four quadrant BEBETO 24.6 cm. Filiberto Lee M.D. Diagnostic Radiologist [email or web address] Transcribed: 1:17 pm DW/Dictated by: Filiberto Lee MD @ 11/21/2024 11:53:00 AM (Electronically Signed)
== END 2024-11-21 10:20 | disposition home or self-care (01) ==
LOC: US 10:20
PROVIDERS: PCP Nurse Practitioner Family; Visit Provider Advanced Practice Midwife
DX: O99.213 Obesity complicating pregnancy, third trimester (principal); O09.893 Supervision of other high risk pregnancies, third trimester; Z68.41 Body mass index [BMI] 40.0-44.9, adult; Z3A.35 35 weeks gestation of pregnancy
CPT/HCPCS: 76819

== ENCOUNTER 2024-11-28 10:23 | Outpatient (CLI) | payer BC, MEDICAID, SELFPAY ==
--- NOTE | 2024-11-28 10:15 | CRLHL7_ITS ---
For Patients: As a result of the Century Cures Act, medical imaging exams and procedure reports are released immediately into your electronic medical record. You may view this report before your referring provider. If you have questions, please contact your health care provider. INDICATION: Ultrasound OB pelvis BPP. TECHNIQUE: Ultrasound OB pelvis transabdominal. Real-time conner-scale imaging of the fetus was performed without stress testing. COMPARISON: None. FINDINGS: heart rate: Regular, 154 bpm. position: Cephalic. Cervix not visualized. Amniotic fluid volume single deepest pocket 5.4 cm, 2/2. motion 2/2. tone 2/2. breathing movements 2/2. IMPRESSION: Single viable intrauterine with a biophysical profile 05/19. Dictated by Naomi Billy MD @ 11/28/2024 3:18:49 PM (Electronically Signed)
== END 2024-11-28 10:24 | disposition home or self-care (01) ==
LOC: US 10:24
PROVIDERS: PCP Nurse Practitioner Family; Visit Provider Advanced Practice Midwife
DX: O09.899 Supervision of other high risk pregnancies, unspecified trimester (principal)
CPT/HCPCS: 76819

== ENCOUNTER 2024-11-28 11:48 | Outpatient (CLI) | payer BC, MEDICAID, SELFPAY ==
[2024-11-28 19:46] LABS: Strep B Susceptibility Needed? No
[2024-11-29 12:16] LABS: Strep B DNA Probe Negative (Negative)
== END 2024-11-28 11:49 | disposition home or self-care (01) ==
LOC: NFLDREF 11:48
PROVIDERS: PCP Nurse Practitioner Family; Visit Provider Midwife
DX: Z34.83 Encounter for supervision of other normal pregnancy, third trimester (principal)
CPT/HCPCS: 87081; 87653

== ENCOUNTER 2024-12-05 10:12 | Outpatient (CLI) | payer BC, MEDICAID, SELFPAY ==
--- NOTE | 2024-12-05 10:15 | CRLHL7_ITS ---
For Patients: As a result of the Century Cures Act, medical imaging exams and procedure reports are released immediately into your electronic medical record. You may view this report before your referring provider. If you have questions, please contact your health care provider. INDICATION: Supervision of high-risk . TECHNIQUE: Ultrasound OB pelvis transabdominal. Real-time conner-scale imaging of the fetus was performed without stress testing. COMPARISON: None. FINDINGS: heart rate: Regular, 150 bpm. position: Cephalic. Placenta: Posterior. Amniotic fluid volume single deepest pocket 7 cm, 2/2. motion 2/2. tone 2/2. breathing movements 0/2. IMPRESSION: Single viable intrauterine with a biophysical profile 03/19. Respiratory activity was not demonstrated. Dictated by Sabino Yanez MD @ 12/05/2024 11:57:13 AM (Electronically Signed)
== END 2024-12-05 10:13 | disposition home or self-care (01) ==
LOC: US 10:13
PROVIDERS: PCP Nurse Practitioner Family; Visit Provider Advanced Practice Midwife
DX: O09.899 Supervision of other high risk pregnancies, unspecified trimester (principal)
CPT/HCPCS: 76819

== ENCOUNTER 2024-12-08 14:33 | Outpatient (CLI) | payer BC, MEDICAID, SELFPAY | END 2024-12-08 14:34 | disposition home or self-care (01) | LOC: US 14:33 | PROVIDERS: PCP Nurse Practitioner Family; Visit Provider Obstetrics & Gynecology | DX: O28.8 Other abnormal findings on antenatal screening of mother (principal) | CPT/HCPCS: 76819 ==

== ENCOUNTER 2024-12-11 07:59 | Outpatient (CLI) | payer BC, MEDICAID, SELFPAY ==
[2024-12-11 08:21] VITALS: BP 119/74; PULSE 103; RESP 16; TEMP 36.6
[2024-12-11 08:44] LABS: Amnisure Rom* Negative
[2024-12-11 08:59] LABS: Appearance Urine Clear (Clear); Bilirubin Urine Negative (Negative); Blood Urine Negative (Negative); Color Urine Dark yellow (Yellow); Glucose Urine Negative (Negative); Ketones Urine Negative (Negative); Leukocyte Esterase Urine Negative (Negative); Nitrite Urine Negative (Negative); Protein Urine 1+ (Negative); Specific Gravity Urine >= 1.030 (1.000-1.030); Urobilinogen Urine 0.2 (0.2-1.0)
[2024-12-11 09:17] LABS: Clue Cells No Clue Cells Seen (None Seen); Trichomonas No Trichomonas Seen (None Seen); Yeast No Yeast Seen (None Seen)
[2024-12-11 09:18] LABS: Bacteria Urine Few; Squamous Epithelial Cell Urine Few (None-Few)
--- NOTE | 2024-12-11 10:09 | PC.OBNST ---
NST Note NST Note Start: 12/11/24 08:02 Freq: ONCE Status: Active Protocol: Document 12/11/24 10:08 BAW (Rec: 12/11/24 10:09 BAW No Response) NST Note 6 Para (# of births) 2 EDC 12/26/24 Gestational Age In Weeks & Days 37 Weeks & 6 Days High Risk Factors Diabetes - Gestational Insulin Patient Presented with Complaint(s) of Contractions/cramping,Leaking fluid Reactive Yes Appropriate for Gestational Age Yes KYRA Christianson RNC Date 12/11/24 Reactive Yes Appropriate for Gestational Age Yes KYRA Cisse MD Date 12/11/24 OB NST charge Yes Complete NST Note via Write Note Yes The provider's electronic signature indicates the NST is reactive/appropriate for gestational age. *Note to provider: If an addendum is required, open the patient's chart and click on the note under the Nurse/Allied Health tab.
== END 2024-12-11 09:26 | disposition home or self-care (01) ==
LOC: OB OUT 08:00 → OB 08:06
PROVIDERS: PCP Nurse Practitioner Family; Visit Provider Obstetrics & Gynecology
DX: O47.1 False labor at or after 37 completed weeks of gestation (principal); O24.419 Gestational diabetes mellitus in pregnancy, unspecified control; Z3A.37 37 weeks gestation of pregnancy
CPT/HCPCS: 59025; 81001; 81003; 84112; 87086; 87210; G0463

== ENCOUNTER 2024-12-12 10:13 | Outpatient (CLI) | payer BC, MEDICAID, SELFPAY | END 2024-12-12 10:14 | disposition home or self-care (01) | PROVIDERS: PCP Nurse Practitioner Family; Visit Provider Midwife | DX: O24.419 Gestational diabetes mellitus in pregnancy, unspecified control (principal); O09.893 Supervision of other high risk pregnancies, third trimester; Z3A.38 38 weeks gestation of pregnancy | CPT/HCPCS: 76816; 76819 ==

== ENCOUNTER 2024-12-19 16:12 | Inpatient (IN) | payer BC, MEDICAID, SELFPAY ==
[2024-12-19 16:31] VITALS: PULSE 132; O2SAT 80
[2024-12-19 16:32] VITALS: BP 135/71; PULSE 113; PULSE 117; TEMP 36.6; O2SAT 97
[2024-12-19 16:47] VITALS: BMI 45.0
[2024-12-19] MEDS: miSOPROStoL 25 MCG/0.25 TABLET VAGINAL (18:43)
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
[2024-12-19 21:02] LABS: Basophils Percent Auto 0.2 % (0.0-3.0); Eosinophils Percent Auto 0.7 % (0.0-7.0); Hematocrit 34.9 % (33.0-51.0); Hemoglobin* 10.8 gm/dL (12.0-16.0); Immature Granulocytes Pct Auto 0.2 %; Lymphocytes Percent Auto 21.5 % (20-44); Mean Corpuscular HGB Conc 31 gm/dL (32-36); Mean Corpuscular Hemoglobin 22 pg (26-34); Mean Corpuscular Volume 72 fL (80-100); Monocytes Percent Auto 5.5 % (0.0-11.0); Neutrophils Percent Auto 71.9 % (42.0-72.0); Platelet Count* 261 K/uL (140-440); RDW Coefficient of Variation % 14.5 % (11.5-15.5); Red Blood Count 4.82 m/uL (4.00-5.20)
[2024-12-19 21:06] LABS: Slide Review Reflex No
[2024-12-19] MEDS: INSULIN NPH 100 UNIT/ML 9 UNIT SUBCUT (21:28)
[2024-12-19 22:16] VITALS: BP 122/73; PULSE 102
[2024-12-20] VITALS (50 sets, daily range): BP systolic 107–154; BP diastolic 55–92; PULSE 81–120; RESP 16; TEMP 36.6–37.2; O2SAT 93–100
[2024-12-20] MEDS: MORPHINE 10 MG/ML inj IM (00:36)
[2024-12-20] MEDS: hydrOXYzine pamoate 25 MG CAPSULE 100 MG PO (00:37)
--- NOTE | 2024-12-20 00:44 | PM.OBPNL ---
Subjective Time Seen by Provider: 12:00 Date Seen: 12/20/24 Objective Vital Signs: Last Vital Signs Temp 98 F 12/19/24 16:32 Pulse 93 12/20/24 00:16 BP 131/92 H 12/20/24 00:16 Pulse Ox 98 12/20/24 00:16 Pelvic Exam Dilation (cm): 1 Effacement (%): 30 Station: -3 Comments: Patient consented to cook cath. First dose of misoprostol resulted in a few late decelerations that needed resuscitation via repositioning. Thus, I think the Cook catheter is the better approach. Contractions Pitocin Rate (mU/min): 0 Assessment Assessment: induction ongoing Station: -3 Status: Category ll Heart Rate Baseline: 140 Humid System Operator Variability: Moderate (6-25) Monitor Accelerations: Present Monitor Decelerations: Late Tracing Comments: Cat I within the last hour. Plan Plan: - Cook cath placed digitally. Patient was tearful with cervical exam despite not endorsing severe pain. We paused a couple of time to reposition and patient consented to continue. - She was able to tolerate the procedure with support of her partner and mom. - Cook cath placed at 1200 with 50cc/50cc. At end of the procedure, patient endorsed soreness. Morphine and Vistaril was offered.
[2024-12-20] MEDS: LACTATED RINGERS 1000 ML 1,000 ML 125 ML IV (06:00)
[2024-12-20] MEDS: OXYTOCIN 30 unit/500 ML in NS 30 UNIT/500 ML BAG IVPB (06:00)
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
[2024-12-20] MEDS: LACTATED RINGERS 1000 ML 1,000 ML 1115 ML IV (13:57)
[2024-12-20] MEDS: ROPIVACAINE 0.2% 100 ml 100 ML 12 MG EPIDURAL (14:29)
[2024-12-20] MEDS: LIDOCAINE 2% (PF) 5 ML VIAL EPIDURAL (14:30)
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
[2024-12-20] MEDS: PHENYLEPHRINE 100 MCG/ML SYRINGE IVP (15:47)
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
--- NOTE | 2024-12-20 16:52 | W.PM.VAGDEL1 ---
Procedure Delivery date: 12/20/24 Procedure Done: Global Procedure Details: The patient is a 29 year-old woman admitted on 12/19/2024 at 39 Weeks, 1 Days gestation for induction of labor for GDM A2.? Cervical exam on admission was 11/05/-4/moderately soft/posterior. She has had vaginal misoprostol for cervical ripening, which resulted in late decelerations. She then had placement of Cook catheter for cervical ripening after midnight, which fell out this morning 12/20/24. AROM occurred at 12:34 p.m. with light meconium-stained fluid. ? Labor Analgesia:? Epidural ? Pitocin:? Yes ? Complete:? 4:20 p.m. She progressed rapidly from 5 cm, 80% effaced with fetus very high in the pelvis to completely dilated. ? Pushing:? 4:20 p.m. ? heart tones during second stage were concerning for bradycardia into the 90s. This did not respond to position change and she went on to push over the course of 2 contractions for successful spontaneous vaginal delivery. ? At 4:26 p.m. a viable male infant delivered in vertex OA presentation over intact perineum via spontaneous vaginal delivery.? was placed on maternal abdomen.? Cord was clamped and cut after a greater than 60 second delay.? Nose and mouth were bulb suctioned.? weight pending.? 7 at 1 minute and 8 at 5 minutes.? Shoulder dystocia: No.? Nuchal cord: Yes, x2, infant delivered through. ? Placenta delivered spontaneously and complete at 4:33 p.m. ? Mother and were stable after delivery. ? Lacerations:? Second-degree midline vaginal, which exposed 2 subcentimeter mucus cysts. Each of these were excised and the laceration was repaired with running suture of 3-0 Vicryl in the usual fashion. ? Blood loss: 150 mL. Blood loss measurement type: EBL ? Sponge and needles counts are correct. Events: GDMA2 Intrapartal Events: Precipitous Labor <3 Hrs Delivery augmentation: rupture of membranes and pitocin Delivery monitor: external FHT and internal FHT Route of delivery: Episiotomy description: None Laceration description: Vaginal - 2nd Degree Delivery repair: Vicryl Estimated blood loss (mL): 150 Anesthesia type: Epidural Infant Gender: Male
[2024-12-20] MEDS: IBUPROFEN 600 MG TABLET PO (21:30)
[2024-12-21 01:00] VITALS: BP 132/77; PULSE 91; RESP 16; TEMP 36.7; O2SAT 97
[2024-12-21 04:15] VITALS: BP 117/77; PULSE 93; RESP 16; TEMP 36.9
[2024-12-21 06:30] LABS: Hemoglobin* 9.4 gm/dL (12.0-16.0)
--- NOTE | 2024-12-21 08:57 | PM.OBPNVD1 ---
OB - PN:Subj Subjective Date Seen: 12/21/24 Narrative: Hue is a 29 year old who was admitted for IOL for GDMA2 and proceeded to have a vaginal with a 2nd degree laceration that was repaired.The patient feels well.? The pain is well controlled with current medications.? She has no new complaints.? Urinary output is adequate and she is voiding without difficulty.? Has a good appetite, is tolerating a general diet, is passing flatus, and has not had a bowel movement.? Has small amount of rubra lochia.? She is ambulating well. She is and reports it is going well.?She is doing her 2 hour glucose test this morning. OB - PN: Obj Exam Physical Exam: Vital signs: Temp Pulse Resp BP Pulse Ox O2 Del Method 98.5 F 93 16 117/77 97 Room Air 12/21/24 04:15 12/21/24 04:15 12/21/24 04:15 12/21/24 04:15 12/21/24 01:00 12/21/24 04:15 Narrative: GENERAL APPEARANCE:? normal affect, alert, no distress MOOD:? appropriate CHEST:? clear to auscultation HEART:? regular rate and rhythm ABDOMEN:? soft, non-tender the uterine fundus is At Umbilicus, Midline and is appropriate for the stage of recovery. PERINEUM:? mild edema of the perineum, there is a Perineal Laceration that is well approximatedl. EXTREMITIES:? normal and mild edema : OB - PN: Obj Data Labs Labs: Laboratory Results - last 24 hr 12/21/24 12/21/24 06:04 08:19 Hgb 9.4 L Glucose Tolerance OB - PN: A/P Delivery Assessment and Plan (1) care and examination of lactating mother: Status: Acute (2) Normal spontaneous vaginal delivery: Status: Acute (3) GDM, class A2: Status: Acute (4) BMI 45.0-49.9, adult: Status: Acute Plan Comments: PP day #1 Routine care May see as desired Anticipate discharge 12/22/2024 May decide to discharge this rupal and will notify nursing to let me know. 2 hour glucose test is pending
[2024-12-21 09:03] LABS: Glucose Fasting 83 mg/dl (70-95)
[2024-12-21 10:25] VITALS: BP 118/81; PULSE 104; RESP 16; O2SAT 98
[2024-12-21] MEDS: IBUPROFEN 600 MG TABLET PO ×2 (10:33→17:55)
[2024-12-21] MEDS: DOCUSATE SODIUM 100 MG CAPSULE PO (10:33)
[2024-12-21 10:46] LABS: Glucose 2 Hour 127 mg/dl (70-155)
[2024-12-21 14:00] VITALS: BP 117/80; PULSE 106; RESP 16; TEMP 36.8; O2SAT 96
[2024-12-21 17:50] VITALS: BP 123/83; PULSE 88; RESP 16; TEMP 36.7; O2SAT 97
[2024-12-21 17:59] LABS: Rapid Plasma Reagin (RPR) Non Reactive (Non Reactive)
[2024-12-21 20:08] VITALS: BP 130/82; PULSE 93; RESP 16; TEMP 36.7; O2SAT 97
[2024-12-22 00:24] VITALS: BP 118/80; PULSE 99; RESP 16; TEMP 36.8; O2SAT 97
--- NOTE | 2024-12-22 07:59 | PM.OBDSVD1 ---
DS: Providers Provider Date Seen: 12/22/24 Date of admission: 12/19/24 16:12 Primary care physician: Elizabeth Arcos CNP Admitting Clinician: Kavita Weber MD Attending Physician on discharge: Kavita Weber MD Date of Discharge: 12/22/24 DS: Diagnosis Discharge Diagnosis (1) care and examination of lactating mother: Status: Acute (2) GDM, class A2: Status: Acute (3) Depression with anxiety: Status: Acute Exam Narrative: Exam Narrative: GENERAL APPEARANCE:? normal affect, alert, no distress? MOOD:? appropriate? CHEST:? clear to auscultation and percussion? HEART:? regular rate and rhythm? ABDOMEN:? soft, non-tender the uterine fundus is U/2 and is appropriate for the stage of recovery.? PERINEUM:? mild edema of the perineum, there is a 2nd degree laceration that is healing well.? EXTREMITIES:? normal and no edema? Const: Vital Signs, click to edit/add: Vital Signs - 24 hr 12/21/24 10:25 12/21/24 14:00 12/21/24 17:50 Temperature 98.2 F 98.0 F Pulse Rate [Left P ulse Oximeter] 104 H 106 H 88 Respiratory Rate 16 16 16 Blood Pressure [Ri ght Arm] 118/81 117/80 123/83 Pulse Oximetry 98 96 97 Oxygen Delivery Me thod Room Air Room Air Room Air 12/21/24 20:08 12/22/24 00:24 Temperature 98.0 F 98.3 F Pulse Rate [Left P ulse Oximeter] 93 99 Respiratory Rate 16 16 Blood Pressure [Ri ght Arm] 130/82 118/80 Pulse Oximetry 97 97 Oxygen Delivery Me thod Room Air Room Air Documenting provider has reviewed patient's vital signs: yes OB - DS: Summary Hospital Course Hospital Course: The patient is a 29 year old G 6 P 3 at 39.1 weeks gestation that was admitted to the Center on 12/19/24 for IOL for GDMA2. She had an uncomplicated vaginal delivery. She delivered a viable male infant. She is bottle feeding and plan to exclusively pump after discharge. States that she has put baby to breast a few times and did encourage help with latch if she desires. the patient has done well. Her pain is well controlled with current medications.? She has no new complaints.? Urinary output is adequate and she is voiding without difficulty.? Has a good appetite, is tolerating a general diet, is passing flatus, and has not had a bowel movement.? Has scant amount of rubra lochia.? She is ambulating well. Hemoglobin is 9.4 yesterday so she will plan for iron supplementation. Blood pressures have been stable since delivery but did encourage monitoring at home occasionally given her history of gestational hypertension and reviewed preeclampsia symptoms. Her 2hr GTT yesterday was WNL. Peripartum Data Infant delivery method: Vaginal Laceration description: Perineal - 2nd Degree Episiotomy description: None complications: none [place] Gender: Male Infant Discharge Plan: Home Status at Discharge Functional status at discharge: independent ambulation Overall status at discharge: patient is progressing back to baseline Time Spent with Patient Time attestation: Total time spent providing and/or coordinating discharge services: Discharge Plan Discharge Disposition: Home, Self-Care Date of Admission: 12/19/24 16:12 Attending Provider on Discharge: Evelin Benson Consulting Providers: Sejal King Primary Care Provider: Elizabeth Arcos Condition: Stable Anticipated Discharge Date/Time: 12/22/24 10:00 Discharge Medications: New docusate sodium 100 mg Capsule 100 mg PO DAILY Qty: 90 0RF Rx Instructions: Take 1-2 tablets daily as needed for constipation. ibuprofen 600 mg Tablet 600 mg PO Q6H PRNQty: 90 0RF ferrous sulfate 325 mg (65 mg iron) tablet 325 mg PO Q OTHER DAY Qty: 90 0RF Continued trazodone 50 mg tablet 50 mg PO QHS PRN vilazodone 40 mg tablet 40 mg PO QDAY Rx Instructions: must administer with a meal/food aspirin 81 mg tablet,delayed release (DR/EC) 81 mg PO QDAY vitamin B complex [B Complex-Vitamin B12] Tablet 1 tab PO QDAY cholecalciferol (vitamin D3) 25 mcg (1,000 unit) capsule 25 mcg PO QDAY propranolol 20 mg tablet 20 mg PO 3XD PRN DHA 200 mg capsule 200 mg PO DAILY Discontinued (DME) insulin syringe-needle U-100 [Sure Comfort Insulin Syringe] 1 mL 30 gauge x 5/16 syringe See Rx Instructions .ROUTE .MEDSUPPLY Qty: 100 3RF Rx Instructions: As directed alcohol swabs [Alcohol Pads] Pads, Medicated 2 pad topical DAILY Qty: 100 1RF Humulin N NPH U-100 Insulin 100 unit/mL suspension 18 unit subcut .hs Qty: 30 1RF (DME) Test Strips Misc See Rx Instructions .MEDSUPPLY Qty: 100 3RF Rx Instructions: Test blood sugar 4 times daily. (DME) lancets Misc See Rx Instructions .MEDSUPPLY Qty: 100 3RF Rx Instructions: Test blood sugar 4 times daily. (DME) Blood Glucose Meter Misc See Rx Instructions .MEDSUPPLY Qty: 1 0RF Rx Instructions: As directed Discharge Orders: Discharge Order (Routine); Ordered 12/22/24 Ordered By: Evelin Benson Patient Education: OB Vaginal/Breast Feeding Additional Instructions: Discharge instructions were reviewed with the patient including signs and symptoms of infection and home going medications.? Lifting Restrictions: 20 pounds for 6? weeks? ?? Do not drive while taking narcotic pain meds.? Off Work or School for 6 weeks.? ?? Symptoms to report to doctor:? -Bleeding that saturates more than one pad per hour? -Passing clots larger than the size of a golf ball? -Pain not relieved by prescribed medication? -Fever above 100.4 degrees Fahrenheit? -A foul vaginal odor? -Difficulty in emotions, mood and functions? -Thoughts of hurting yourself and/or ? -Painful, reddened area in your breast? -Any drainage, redness or tenderness in your IV/epidural site? -Severe headache that doesn't improve after taking medications? -Changes in vision, including temporary loss of vision, blurred vision, and/or light sensitivity? -Upper abdominal pain (usually under ribs on the right side)? -Decrease in urination or painful, frequent urinating? -Chest pain? -Shortness of breath? -Tenderness or pain with redness and/swelling in the calf(s) of your leg? ?? Follow Up in clinic in 2 and 6 weeks.? ?? consultation services are available to all mothers and babies for the first year after delivery.? To make an appointment, please call [phone].? Activity Level: Activity as Tolerated Discharge Diet: Regular Follow Up Appointments: [facility] [Provider Group] Forms: MyHealth Info Instructions
[2024-12-22 08:00] VITALS: BP 124/80; PULSE 87; RESP 16; TEMP 36.7; O2SAT 97
== END 2024-12-22 11:15 | disposition home or self-care (01) | DRG 560 ==
PROVIDERS: Obstetrics & Gynecology; Admitting Provider Obstetrics & Gynecology; PCP Nurse Practitioner Family; Visit Provider Obstetrics & Gynecology
DX: O24.424 Gestational diabetes mellitus in childbirth, insulin controlled (principal); O76 Abnormality in fetal heart rate and rhythm complicating labor and delivery; O77.0 Labor and delivery complicated by meconium in amniotic fluid; O69.89X0 Labor and delivery complicated by other cord complications, not applicable or unspecified; O62.3 Precipitate labor; O70.1 Second degree perineal laceration during delivery; N89.8 Other specified noninflammatory disorders of vagina; O40.3XX0 Polyhydramnios, third trimester, not applicable or unspecified; O99.344 Other mental disorders complicating childbirth; F41.9 Anxiety disorder, unspecified; F32.A Depression, unspecified; Z3A.39 39 weeks gestation of pregnancy; Z37.0 Single live birth
CPT/HCPCS: 01967; 36415; 59200; 82947; 82950; 85018; 85025; 86592; 86850; 86900; 86901; A9270; C1726; J2270; J2371; J2795; J7120

== ENCOUNTER 2025-01-31 13:34 | Outpatient (CLI) | payer BC, MEDICAID, SELFPAY ==
[2025-02-03 11:32] LABS: HPV Source Cervix; HPV, High Risk by TMA Not Detected
[2025-02-09 15:05] LABS: Pap Test Reviewed by Path Done
== END 2025-01-31 13:35 | disposition home or self-care (01) ==
PROVIDERS: PCP Nurse Practitioner Family; Visit Provider Registered Nurse
DX: Z12.4 Encounter for screening for malignant neoplasm of cervix (principal); Z11.51 Encounter for screening for human papillomavirus (HPV)
CPT/HCPCS: 87624; 87625; 88141; 88142

== ENCOUNTER 2025-06-21 08:00 | Outpatient (CLI) | payer BC, SELFPAY ==
[2025-06-21 09:03] LABS: Hematocrit* 38.8 % (33.0-51.0); Hemoglobin* 12.3 gm/dL (12.0-16.0); Immature Granulocytes Abs Auto 0.01 K/uL (0.00-0.30); Immature Granulocytes Pct Auto 0.1 %; Lymphocytes Absolute Auto 2.35 K/uL (0.90-2.90); Mean Corpuscular HGB Conc 32 gm/dL (32-36); Mean Corpuscular Hemoglobin 26 pg (26-34); Mean Corpuscular Volume 82 fL (80-100); RDW Coefficient of Variation % 13.2 % (11.5-15.5); Red Blood Count* 4.75 m/uL (4.00-5.20); White Blood Count* 6.97 K/uL (4.50-11.00)
[2025-06-21 09:05] LABS: Slide Review Reflex No
[2025-06-21 09:09] LABS: Albumin* 4.2 g/dL (3.3-5.0); Chloride* 105 mmol/L (96-114); Potassium* 3.8 mmol/L (3.6-5.1); Sodium* 139 mmol/L (135-149)
[2025-06-21 09:11] LABS: Alanine Aminotransferase* 22 U/L (4-35); Aspartate Amino Transferase* 23 U/L (12-35); Blood Urea Nitrogen* 14 mg/dL (5-24); Creatinine* 0.7 mg/dL (0.5-1.5); Estimated Glomerular Filt Rate 119 ml/min; Iron* 86 ug/dL (37-170)
[2025-06-21 09:12] LABS: Alkaline Phosphatase* 104 U/L (40-150); Anion Gap 9 mEq/L (7-15); Bilirubin Total* 0.6 mg/dL (0.1-1.5); Calcium* 8.9 mg/dL (8.4-10.6); Carbon Dioxide* 25 mmol/L (20-32); Glucose* 101 mg/dL (60-115); Total Protein* 7.1 g/dL (6.0-8.3)
[2025-06-21 09:22] LABS: Percent Iron Saturation 29 % (20-50); Total Iron Binding Capacity 299 ug/dL (265-497)
[2025-06-21 09:30] LABS: Free T4 Free Thyroxine* 1.14 ng/dL (0.70-1.85)
[2025-06-21 09:39] LABS: Vitamin D 25 Hydroxy* 33 ng/mL (30-80)
[2025-06-21 11:20] LABS: Vitamin B12* 559 pg/mL (243-894)
[2025-06-22 17:21] LABS: Free T3 3.2 pg/mL (2.5-4.3)
[2025-06-22 22:10] LABS: Iodine, Serum 65.4 ug/L (40.0-92.0)
[2025-06-23 03:28] LABS: Folate, Serum >22.3 ng/mL (>=5.9)
[2025-06-23 05:39] LABS: Zinc, Serum/Plasma 72.6 ug/dL (60.0-120.0)
== END 2025-06-21 08:01 | disposition home or self-care (01) ==
LOC: NPINS 08-08 08:32
PROVIDERS: Visit Provider Nurse Practitioner Psychiatric/Mental Health
DX: F33.1 Major depressive disorder, recurrent, moderate (principal)
CPT/HCPCS: 80053; 82306; 82607; 82728; 82746; 83018; 83540; 83550; 83735; 84439; 84443; 84481; 84630; 85025

== ENCOUNTER 2025-08-22 15:36 | Outpatient (CLI) | payer BC, MEDICAID, SELFPAY | END 2025-08-22 15:37 | disposition home or self-care (01) | LOC: NFLDREF 15:36 | PROVIDERS: PCP Family Medicine; Visit Provider Family Medicine | DX: O24.419 Gestational diabetes mellitus in pregnancy, unspecified control (principal); Z13.6 Encounter for screening for cardiovascular disorders | CPT/HCPCS: 80061 ==

== ENCOUNTER 2025-09-18 20:10 | Outpatient (CLI) | payer BC, MEDICAID, SELFPAY ==
--- NOTE | 2025-09-26 12:10 | W.PM.SLEEP ---
Sleep Study Details Details Interpreting Provider: Michael Date of Sleep Study: 09/18/25 Sleep Study Details: STUDY TYPE:? Home unattended ? BMI:? 42.4 ORDERING PROVIDER:Daniel Rivera INDICATION:? Concern for sleep apnea ? SLEEP SUMMARY:? 367 minutes total sleep time RESPIRATORY SUMMARY:? AHI 5.1 per rule 1 a, 1.8 per CMS guideline Supine AHI 15 rule 1 a, 11.3 CMS guideline. No supine REM sleep was seen. Nonsupine REM AHI 6.7 PERIODIC LIMB MOVEMENTS OF SLEEP:? Index 1.3 index with arousal 0 CARDIAC:? Awake 90 asleep 84 no arrhythmias noted IMPRESSION:? Mild obstructive sleep apnea RECOMMENDATION: Treatment options include weight loss, CPAP or dental appliance.
== END 2025-09-18 20:11 | disposition home or self-care (01) ==
LOC: SLEEP 20:10
PROVIDERS: PCP Family Medicine; Visit Provider Otolaryngology
DX: G47.33 Obstructive sleep apnea (adult) (pediatric) (principal)
CPT/HCPCS: 95810